=== PATIENT | female | born 1985 | race Two or more races ===

== ENCOUNTER 2016-11-09 07:15 | Emergency (ER) | payer OTHER ==
[2016-11-09 07:41] VITALS: BMI 25.2
--- NOTE | 2016-11-09 08:18 | PDOC ---
History of Present Illness - General History Source: Patient Exam Limitations: No Limitations - History of Present Illness Initial Comments: 11/09/16 09:42 The patient is a 30 year old female with a significant past medical history of asthma and hyperthyroidism who presents to the ED with complaints of generalized abdominal pain for a week. The patient reports crampy generalized abdominal pain radiating to both her left and right quadrants. The patient also reports over 5 episodes of watery stool and vomit productive of green sputum every day. She states she is unable to eat or drink anything secondary to diarrhea and vomiting. The patient also reports slight chest discomfort that she describes as a burning associated with symptoms. The patient was recently seen in the ED 4 days ago for present symptoms and states she felt better for 1 day and then her symptoms worsened again. She states there are 3 children at home who have similar symptoms. Denies recent travel. Denies fevers or chills. Denies shortness of breath or palpitations. Denies hematochezia or hematuria. Denies any other symptoms. Surgical hx: Tubal ligation <Sammie Monroe - Last Filed: 11/09/16 09:42> <Victor Manuel Walton - Last Filed: 11/09/16 14:30> - General Chief Complaint: Pain, Acute Stated Complaint: VOMITING Time Seen by Provider: 11/09/16 08:16 Past History <Sammie Monroe - Last Filed: 11/09/16 09:42> - Past Medical History Asthma: Yes Thyroid Disease: Yes (HYPOTHYROID) - Psycho/Social/Smoking Cessation Hx Suicidal Ideation: No Smoking History: Never smoked <Victor Manuel Walton - Last Filed: 11/09/16 14:30> - Past Medical History Allergies/Adverse Reactions: Allergies Allergy/AdvReac Type Severity Reaction Status Date / Time No Known Allergies Allergy Verified 11/09/16 07:29 Home Medications: Ambulatory Orders Albuterol Sulfate [Proventil HFA Inhaler -] 1 - 2 inh PO QID PRN 11/09/16 Levothyroxine [Synthroid -] 100 mcg PO DAILY 11/09/16 Review of Systems - Review of Systems Able to Perform ROS?: Yes Comments:: 11/09/16 09:42 CONSTITUTIONAL: No reported: Fever, Chills, Diaphoresis, Generalized Weakness, Malaise, Loss of Appetite HEENT: No reported: Rhinorrhea, Nasal Congestion, Throat Pain, Throat Swelling, Difficulty Swallowing, Mouth Swelling, Ear Pain, Eye Pain, Visual Changes CARDIOVASCULAR: No reported: Chest Pain, Syncope, Palpitations, Irregular Heart Rate, Lightheadedness, Peripheral Edema RESPIRATORY: No reported: Cough, Shortness of Breath, SOB with Exertion, Orthopnea, Wheezing , Stridor, Hemoptysis GASTROINTESTINAL: +abdominal pain, nausea, vomiting, diarrhea. No reported: Abdominal Distension, Constipation, Melena, Hematochezia GENITOURINARY: No reported: Dysuria, Frequency, Urgency, Hesitancy, Flank Pain, Genital Pain MUSCULOSKELETAL: No reported: Myalgia, Arthralgia, Joint Swelling, Back pain, Neck Pain SKIN: No reported: Rash, Itching, Pallor HEMEATOLOGIC/IMMUNOLOGIC: No reported: Easy Bleeding, Easy Bruising, Lymphadenopathy, Frequent infections ENDOCRINE: No reported: Unexplained Weight Gain, Unexplained Weight Loss, Heat Intolerance , Cold Intolerance NEUROLOGIC: No reported: Headache, Focal Weakness, Paresthesias, Vertigo, Lightheadedness, Unsteady Gait, Seizure, Mental Status Changes, Incontinence PSYCHIATRIC: No reported: Anxiety, Depression All Other Systems: Reviewed and Negative <Sammie Monroe - Last Filed: 11/09/16 09:42> *Physical Exam - Vital Signs Last Vital Signs Temp Pulse Resp BP Pulse Ox 98.3 F 85 19 102/70 98 11/09/16 07:29 11/09/16 07:29 11/09/16 07:29 11/09/16 07:29 11/09/16 07:29 - Physical Exam Comments: 11/09/16 09:43 GENERAL: The patient is awake, alert, and fully oriented, Nontoxic - in no acute distress. HEAD: Normocephalic, atraumatic. EYES: extraocular movements intact, sclera anicteric, conjunctiva clear. ENT: Normal voice, Moist mucous membranes. NECK: Normal range of motion, supple LUNGS: Breath sounds equal, clear to auscultation bilaterally. No wheezes, no rhonchi, no rales. HEART: Regular rate and rhythm, without murmur, rub or gallop. ABDOMEN:+ active bowel sounds, mild diffuse tenderness. Soft. No guarding, no rebound.No CVA tenderness EXTREMITIES: Normal range of motion, no edema. No clubbing or cyanosis. No cords, erythema, or tenderness. NEUROLOGICAL: No facial assymetry, Normal speech, PSYCH: Normal mood, normal affect. SKIN: Warm, Dry, normal turgor, <FerAndyoko - Last Filed: 11/09/16 09:42> - Vital Signs Last Vital Signs Temp Pulse Resp BP Pulse Ox 98.3 F 85 19 102/70 98 11/09/16 07:29 11/09/16 07:29 11/09/16 07:29 11/09/16 07:29 11/09/16 07:29 <AntonJonathanVictor Manuel - Last Filed: 11/09/16 14:30> ED Treatment Course - LABORATORY CBC & Chemistry Diagram: 11/09/16 09:00 11/09/16 09:00 - ADDITIONAL ORDERS Additional order review: Laboratory Results 11/09/16 09:00 Urine Color Yellow Urine Appearance Clear Urine pH 5.0 Ur Specific [place] 1.028 Urine Protein Negative Urine Glucose (UA) Negative Urine Ketones Negative Urine Blood 1+ H Urine Nitrite Negative Urine Bilirubin Negative Urine Urobilinogen Negative Ur Leukocyte Esterase Trace H Urine RBC 2 Urine WBC 4 Ur Epithelial Cells Rare Urine Mucus Many Urine HCG, Qual Negative 11/09/16 09:00 RBC 4.75 MCV 80.9 MCHC 31.8 L RDW 15.2 MPV 8.7 Neutrophils % 73.2 Lymphocytes % 15.5 Monocytes % 9.8 Eosinophils % 1.1 Basophils % 0.4 - Medications Given in the ED: ED Medications Discontinued Medications Generic Name Dose Route Start Last Admin Trade Name Freq PRN Reason Stop Dose Admin Al Hydroxide/Mg Hydroxide 30 ml 11/09/16 08:39 11/09/16 09:10 Mylanta Suspension - PO 11/09/16 08:40 30 ml ONCE ONE Administration Famotidine/Sodium Chloride 20 50 mls @ 100 mls/hr 11/09/16 08:39 11/09/16 09:11 mg/ Miscellaneous IVPB 11/09/16 09:08 100 mls/hr ONCE ONE Administration Sodium Chloride 1,000 mls @ 1,000 mls/hr 11/09/16 08:39 11/09/16 09:11 Normal Saline - IV 11/09/16 09:38 1,000 mls/hr .Q1H ONE Administration Metoclopramide HCl 10 mg 11/09/16 08:39 11/09/16 09:11 Reglan Injection - IVPUSH 11/09/16 08:40 10 mg ONCE ONE Administration <Sammie Monroe - Last Filed: 11/09/16 09:42> - LABORATORY CBC & Chemistry Diagram: 11/09/16 09:00 11/09/16 09:00 <Victor Manuel Walton - Last Filed: 11/09/16 14:30> Medical Decision Making - Medical Decision Making 11/09/16 08:56 30y F hx of hypothyroidism presents with complaint of n/v/d x 1 week, was here 4 days ago in the ED, was treatred with fluids and felt better for a day but symptmpos recurred - associated with intermittent abdominal pain w/o fever chills, children also with similar sypmtoms pts labs 4 days ago was normal suspect gastroenteritis No focal abdominal tenderness to suggest acute infectious pathology will recheck labs will hydrate and treat with antiemetics. will reassess A portion of this note was documented by scribe services under my direction. I have reviewed the details of the note, within reason, and agree with the documentation with the following case summary and management plan written by me 11/09/16 10:49 The patients labs were reviewed and are unremarkable ua inconsistent with UTI pt feeling improved currently, currently in no abd pain will give pt another L of fluids for hydration anticiapate that if the pt continues to feel well an dis able to tolerate PO intake will d/c with PMD fu 11/09/16 14:28 pt feeling improved abd reassesesd and is soft nontender pt tolerated juice without n/v or abd pain will dc the pt with pmd fu I discussed the physical exam findings, ancillary test results and final diagnoses with the patient. I answered all of the patient's questions. The patient was satisfied with the care received and felt comfortable with the discharge plan and treatment plan. The patient will call their primary care physician within 24 hours to arrange follow-up and will return to the Emergency Department with any new, persistent or worsening symptoms. 11/09/16 14:28 <Victor Manuel Walton - Last Filed: 11/09/16 14:30> *DC/Admit/Observation/Transfer - Attestations Scribe Attestion: 11/09/16 09:43 Documentation prepared by Sammie Monroe, acting as medical services assistant for Victor Manuel Walton MD <Sammie Monroe - Last Filed: 11/09/16 09:42> - Discharge Dispostion Admit: No <Victor Manuel Walton - Last Filed: 11/09/16 14:30> Diagnosis at time of Disposition: Gastroenteritis - Discharge Dispostion Disposition: HOME Condition at time of disposition: Improved - Referrals Referrals: Nettie Leal MD [Primary Care Provider] - - Patient Instructions Printed Discharge Instructions: DI for Viral Gastroenteritis -- Adult, Gastroenteritis Diet Additional Instructions: Return to the emergency department immediately with ANY new, persistent or worsening symptoms including worsening abdominal pain, fevers, inability to tolerate oral intake, chest pain, shortness of breath or any other concerns. Stay well hydrated. You MUST call and follow up with your doctor tomorrow. Your emergency department visit is not complete without a followup with your doctor for reevaluation. Please make sure your doctor reviews the results of your emergency evaluation. Print Language: ICELANDIC
[2016-11-09] MEDS ORDERED: SODIUM CHLORIDE 1,000 ML IV ONE ×2 (08:39→11:00)
[2016-11-09] MEDS ORDERED: FAMOTIDINE 20 MG/50 ML IVPB 20 MG in PREMIX 50 IVPB ONE (08:39)
[2016-11-09] MEDS ORDERED: METOCLOPRAMIDE HCL INJECTION 10 MG/2 ML VIAL IVPUSH ONE (08:39)
[2016-11-09] MEDS ORDERED: MAG HYDROX/AL HYDROX/SIMETH 355 ML ORAL.SUSP PO ONE (08:39)
[2016-11-09] MEDS ORDERED: METOCLOPRAMIDE HCL INJECTION 10 MG/2 ML VIAL ONE (08:55)
[2016-11-09] MEDS ORDERED: FAMOTIDINE 20 MG/50 ML IVPB 50 ML IVPB ONE (08:56)
[2016-11-09] MEDS ORDERED: MAG HYDROX/AL HYDROX/SIMETH 30 ML UNIT-DOSE CUP ONE (08:56)
[2016-11-09 09:25] LABS: URINE APPEARANCE CLEAR; URINE BILIRUBIN NEGATIVE (NEGATIVE); URINE COLOR YELLOW; URINE GLUCOSE (UA) NEGATIVE (NEGATIVE); URINE KETONE NEGATIVE (NEGATIVE); URINE NITRITE NEGATIVE (NEGATIVE); URINE PROTEIN NEGATIVE (NEGATIVE); URINE UROBILINOGEN NEGATIVE E.U./dl (0.2-1.0)
[2016-11-09 09:26] LABS: BASOPHIL 0.4 % (0-2.0); EOSINOPHIL 1.1 % (0-4.5); MCH 25.7 pg (25.7-33.7); MCHC 31.8 g/dl (32.0-36.0); MEAN CELL VOLUME 80.9 fl (80-96); MEAN PLT VOLUME 8.7 fl (7.5-11.1); NEUTROPHILS 73.2 % (42.8-82.8); PLATELET COUNT 139 K/MM3 (134-434); RDW 15.2 % (11.6-15.6); WHITE BLOOD COUNT 5.1 K/mm3 (4.0-10.0)
[2016-11-09 09:28] LABS: URINE BLOOD 1+ (NEGATIVE); URINE LEUK ESTERASE TRACE (NEGATIVE)
[2016-11-09 09:29] LABS: URINE MUCUS MANY; URINE RBC 2 /hpf (0-3); URINE WBC 4 /hpf (3-5)
[2016-11-09 09:55] LABS: ALBUMIN 3.7 g/dl (3.4-5.0); ANION GAP 8 (8-16); CALCIUM 8.4 mg/dL (8.5-10.1); CO2 26 mmol/L (21-32); GLUCOSE,RANDOM 89 mg/dL (74-106)
[2016-11-09 10:00] LABS: ALK PHOS 61 U/L (45-117); BILIRUBIN,TOTAL 0.3 mg/dL (0.2-1.0); COCKROFT - GAULT 116.875; CREATININE 0.8 mg/dL (0.55-1.02); SGOT/AST 19 U/L (15-37); SGPT/ALT 22 U/L (12-78); TOT PROT 7.9 g/dl (6.4-8.2)
[2016-11-09 14:56] VITALS: BP 110/74; PULSE 84; TEMP 98.4
== END 2016-11-09 14:50 | disposition home or self-care (01) ==
LOC: JER 07:15
PROC: 3E0337Z Introduction of Electrolytic and Water Balance Substance into Peripheral Vein, Percutaneous Approach (ICD-10-PCS; principal; 2016-11-09)
PROC: 3E033GC Introduction of Other Therapeutic Substance into Peripheral Vein, Percutaneous Approach (ICD-10-PCS; 2016-11-09)
DX: E03.9 Hypothyroidism, unspecified (principal)
CPT/HCPCS: 36415; 80053; 81003; 81015; 84703; 85025; 96361; 96365; 99282-25

== ENCOUNTER 2016-11-14 21:33 | Emergency (ER) | payer OTHER ==
[2016-11-14] MEDS ORDERED: IPRATROPIUM BR 0.02% 0.5 MG/2.5 ML VIAL.NEB. NEB ONE ×2 (21:38→22:05)
[2016-11-14] MEDS ORDERED: ALBUTEROL SO4 0.083% IH SOL 2.5 MG/3 ML VIAL.NEB. NEB ONE ×2 (21:38→22:05)
[2016-11-14] MEDS ORDERED: predniSONE 20 MG TABLET (UD) PO ONE (21:38)
[2016-11-14] MEDS ORDERED: ALBUTEROL SO4 2.5/IPRATROPIUM 0.5 INH SOL 3 ML VIAL.NEB. NEB ONE (21:45)
--- NOTE | 2016-11-14 21:50 | PDOC ---
History of Present Illness - General History Source: Patient, EMS, Old Records Exam Limitations: No Limitations - History of Present Illness Initial Comments: 11/14/16 21:53 The patient is a 30 year old female brought via EMS, with a significant past medical history of asthma and hypothyroidism, who presents to the emergency department with asthma exacerbation onset 90 minutes ago. She reports that she was at home when the exacerbation began and called EMS. As per EMS, on route they administered nebulizer to the patient, which helped to relief her wheezing. On presentation the patient has a dry cough. The patient notes that she has had asthma exacerbations in the past, twice causing her to get hospitalized. She notes that she attributes her asthma exacerbation to the changing of the weather. The patient denies chest pain, headache and dizziness. Denies fever, chills, nausea, vomit, diarrhea and constipation. Denies dysuria, frequency, urgency and hematuria. Allergies: None Past surgical history: None reported Social history: No alcohol, tobacco or drug use reported <Jay Chavez - Last Filed: 11/14/16 21:53> - General History Source: Patient Exam Limitations: No Limitations <Devon Sam - Last Filed: 11/14/16 22:49> - General Stated Complaint: ASTHMA Time Seen by Provider: 11/14/16 21:38 Past History <Jay Chavez - Last Filed: 11/14/16 21:53> - Past Medical History Asthma: Yes Thyroid Disease: Yes (HYPOTHYROID) - Psycho/Social/Smoking Cessation Hx Suicidal Ideation: No Smoking History: Never smoked <Devon Sam - Last Filed: 11/14/16 22:49> - Past Medical History Allergies/Adverse Reactions: Allergies Allergy/AdvReac Type Severity Reaction Status Date / Time No Known Allergies Allergy Verified 11/09/16 07:29 Home Medications: Ambulatory Orders Albuterol Sulfate [Proventil HFA Inhaler -] 1 - 2 inh PO QID PRN 11/09/16 Levothyroxine [Synthroid -] 100 mcg PO DAILY 11/09/16 Albuterol Sulfate Inhaler - [Ventolin HFA Inhaler -] 1 - 2 inh PO Q4H PRN #1 inhaler 11/14/16 Prednisone [Deltasone -] 60 mg PO DAILY #12 tablet 11/14/16 Review of Systems - Review of Systems Able to Perform ROS?: Yes Comments:: 11/14/16 21:53 GENERAL/CONSTITUTIONAL: No fever or chills. No weakness. HEAD, EYES, EARS, NOSE AND THROAT: No change in vision. No ear pain or discharge. No sore throat. CARDIOVASCULAR: +Shortness of breath. No chest pain RESPIRATORY: No cough, wheezing, or hemoptysis. GASTROINTESTINAL: No nausea, vomiting, diarrhea or constipation. GENITOURINARY: No dysuria, frequency, or change in urination. MUSCULOSKELETAL: No joint or muscle swelling or pain. No neck or back pain. SKIN: No rash NEUROLOGIC: No headache, vertigo, loss of consciousness, or change in strength/ sensation. ENDOCRINE: No increased thirst. No abnormal weight change HEMATOLOGIC/LYMPHATIC: No anemia, easy bleeding, or history of blood clots. ALLERGIC/IMMUNOLOGIC: No hives or skin allergy. <Jay Chavez - Last Filed: 11/14/16 21:53> *Physical Exam - Physical Exam Comments: 11/14/16 21:54 GENERAL: Awake, alert, and fully oriented, in no acute distress HEAD: No signs of trauma, normocephalic, atraumatic EYES: PERRLA, EOMI, sclera anicteric, conjunctiva clear ENT: Auricles normal inspection, hearing grossly normal, nares patent, oropharynx clear without exudates. Moist mucosa NECK: Normal ROM, supple, no lymphadenopathy, JVD, or masses LUNGS: No distress, speaks full sentences, clear to auscultation bilaterally HEART: Regular rate and rhythm, normal S1 and S2, no murmurs, rubs or gallops, peripheral pulses normal and equal bilaterally. ABDOMEN: Soft, nontender, normoactive bowel sounds. No guarding, no rebound. No masses EXTREMITIES: Normal inspection, Normal range of motion, no edema. No clubbing or cyanosis. NEUROLOGICAL: Cranial nerves II through XII grossly intact. Normal speech, normal gait, no focal sensorimotor deficits SKIN: Warm, Dry, normal turgor, no rashes or lesions noted. <Jay Chavez - Last Filed: 11/14/16 21:53> Medical Decision Making - Medical Decision Making 11/14/16 21:49 A portion of this note was documented by scribe services under my direction. I have reviewed the details of the note, within reason, and agree with the documentation with the following case summary and management plan written by me. Patient treated in the ED. Nursing notes are reviewed and incorporated into the medical decision-making. Vital signs reviewed. Peripheral IV access obtained by the nurse, laboratory studies are drawn and sent, reviewed and interpreted by myself. 30-year-old female with past medical history of asthma, with prior hospitalizations presents with asthma exacerbation. Patient reports that she was in her usual state health when approximately one half hours prior to arrival , she started wheezing and chest tightness. She called 911 and medics noticed that she had tight breath sounds. She was given a Combivent and brought to the ED. She reports no significant better and talking. She reports that the weather change may have exacerbated her symptoms. Denies fevers, chills, cough. Denies sick contacts or recent travels. Patient's lungs are significantly cleared and without wheezing. We'll give another dose of nebs and steroids and observed. This patient's symptoms are improved, she can be discharged with PMD follow-up. 11/14/16 22:43 Pt reports feeling better. I discussed the physical exam findings, ancillary test results and final diagnoses with the patient. I answered all of the patient's questions. The patient was satisfied with the care received and felt comfortable with the discharge plan and treatment plan. The patient will call their primary care physician within 24 hours to arrange follow-up and will return to the Emergency Department with any new, persistant or worsening symptoms. <Devon Sam - Last Filed: 11/14/16 22:49> *DC/Admit/Observation/Transfer - Attestations Scribe Attestion: 11/14/16 21:54 Documentation prepared by Jay Chavez, acting as medical accountant for Devon Sam MD <Jay Chavez - Last Filed: 11/14/16 21:53> - Discharge Dispostion Admit: No <Devon Sam - Last Filed: 11/14/16 22:49> Diagnosis at time of Disposition: Asthma exacerbation - Discharge Dispostion Disposition: HOME Condition at time of disposition: Improved - Prescriptions Prescriptions: Prednisone [Deltasone -] 60 mg PO DAILY #12 tablet Albuterol Sulfate Inhaler - [Ventolin HFA Inhaler -] 1 - 2 inh PO Q4H PRN #1 inhaler PRN Reason: Wheezing - Referrals Referrals: Nettie Leal MD [Primary Care Provider] - - Patient Instructions Printed Discharge Instructions: DI for Asthma -- Adult Additional Instructions: Take 2 puffs of albuterol every 4 hours as needed for wheezing. Please take the prednisone daily for the next 4 days. Please follow up with your doctor.
[2016-11-14] MEDS ORDERED: predniSONE 20 MG TABLET (UD) ONE (22:05)
[2016-11-14 23:09] VITALS: BP 121/80; PULSE 72; TEMP 98.6; BMI 27.9
== END 2016-11-14 23:32 | disposition home or self-care (01) ==
LOC: JER 21:33
PROC: 3E0F7GC Introduction of Other Therapeutic Substance into Respiratory Tract, Via Natural or Artificial Opening (ICD-10-PCS; principal; 2016-11-14)
DX: J45.901 Unspecified asthma with (acute) exacerbation (principal); E03.9 Hypothyroidism, unspecified
CPT/HCPCS: 99282-25

== ENCOUNTER 2017-03-08 09:13 | Emergency (ER) | payer OTHER ==
[2017-03-08 09:21] VITALS: TEMP 98.1; BMI 28.1
--- NOTE | 2017-03-08 10:02 | PDOC ---
History of Present Illness - General History Source: Patient, Family Exam Limitations: No Limitations - History of Present Illness Initial Comments: 03/08/17 10:22 The patient is a 31 year old female, with significant past medical history of hypothyroidism, asthma, who presents today complaining of LLQ pain and nausea x2 days. She reports that the pain progressively worsened since yesterday . She reports nausea, but denies vomiting. She notes that her LMP was in July, which is not unusual for her. 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 Denies vomiting, diarrhea, constipation. Denies fever, chills. Denies urinary frequency, dysuria, hematuria. Denies vaginal discharge/ foul odor. Allergies:none reported Surgical Hx: tubal ligation (7 years ago) Social Hx: No tobacco use. No alcohol use. PCP- Dr. Nettie Leal <Rosa Martínez - Last Filed: 03/08/17 13:17> <Jaycee Epperson - Last Filed: 03/08/17 17:40> - General Chief Complaint: Pain, Acute Stated Complaint: ABD PAIN Time Seen by Provider: 03/08/17 09:33 Past History <Rosa Martínez - Last Filed: 03/08/17 13:17> - Past Medical History Asthma: Yes Thyroid Disease: Yes (HYPOTHYROID) - Immunization History Immunization Up to Date: Yes - Psycho/Social/Smoking Cessation Hx Suicidal Ideation: No Smoking History: Never smoked Have you smoked in the past 12 months: No Information on smoking cessation initiated: No Hx Alcohol Use: No Drug/Substance Use Hx: No <Jaycee Epperson - Last Filed: 03/08/17 17:40> - Past Medical History Allergies/Adverse Reactions: Allergies Allergy/AdvReac Type Severity Reaction Status Date / Time No Known Allergies Allergy Verified 03/08/17 09:18 Home Medications: Ambulatory Orders Levothyroxine [Synthroid -] 100 mcg PO DAILY 11/09/16 Albuterol Sulfate Inhaler - [Ventolin HFA Inhaler -] 1 - 2 inh PO Q4H PRN #1 inhaler 11/14/16 Ibuprofen [Motrin -] 600 mg PO TID PRN #21 tablet 03/08/17 Oxycodone HCl/Acetaminophen [Percocet 5-325 mg Tablet] 1 tab PO Q6H PRN #12 tablet MDD 4 tabs 03/08/17 Review of Systems - Review of Systems Able to Perform ROS?: Yes Comments:: 03/08/17 10:22 GENERAL/CONSTITUTIONAL: No fever or chills. No weakness. HEAD, EYES, EARS, NOSE AND THROAT: No change in vision. No ear pain or discharge. No sore throat. CARDIOVASCULAR: No chest pain or shortness of breath. RESPIRATORY: No cough, wheezing, or hemoptysis. GASTROINTESTINAL: +LLQ pain and nausea x2days. No vomiting, diarrhea or constipation. GENITOURINARY: No dysuria, frequency, or change in urination. MUSCULOSKELETAL: No joint or muscle swelling or pain. No neck or back pain. SKIN: No rash NEUROLOGIC: No headache, vertigo, loss of consciousness, or change in strength/ sensation. ENDOCRINE: No increased thirst. No abnormal weight change. HEMATOLOGIC/LYMPHATIC: No anemia, easy bleeding, or history of blood clots. ALLERGIC/IMMUNOLOGIC: No hives or skin allergy. <Rosa Martínez - Last Filed: 03/08/17 13:17> *Physical Exam - Vital Signs Last Vital Signs Temp Pulse Resp BP Pulse Ox 98.1 F 81 20 110/77 100 03/08/17 09:18 03/08/17 09:18 03/08/17 09:18 03/08/17 09:18 03/08/17 09:18 <Rosa Martínez - Last Filed: 03/08/17 13:17> - Vital Signs Last Vital Signs Temp Pulse Resp BP Pulse Ox 98.1 F 81 20 110/77 100 03/08/17 09:18 03/08/17 09:18 03/08/17 09:18 03/08/17 09:18 03/08/17 09:18 - Physical Exam Comments: GENERAL: Awake, alert, and fully oriented, in no acute distress. Appears uncomfortable. HEAD: No signs of trauma EYES: PERRLA, EOMI, sclera anicteric, conjunctiva clear ENT: Auricles normal inspection, hearing grossly normal, nares patent, oropharynx clear without exudates. Moist mucosa NECK: Normal ROM, supple, no lymphadenopathy, JVD, or masses LUNGS: Breath sounds equal, clear to auscultation bilaterally. No wheezes, and no crackles HEART: Regular rate and rhythm, normal S1 and S2, no murmurs, rubs or gallops ABDOMEN: Soft, +Tenderness to LLQ with guarding, normoactive bowel sounds. No rebound. No masses EXTREMITIES: Normal range of motion, no edema. No clubbing or cyanosis. No cords, erythema, or tenderness NEUROLOGICAL: Cranial nerves II through XII grossly intact. Normal speech, normal gait. SKIN: Warm, Dry, normal turgor, no rashes or lesions noted. : No external lesions. +Physiologic discharge. +R adnexal tenderness. <Jaycee Epperson - Last Filed: 03/08/17 17:40> ED Treatment Course - LABORATORY CBC & Chemistry Diagram: 03/08/17 10:20 03/08/17 10:20 - ADDITIONAL ORDERS Additional order review: Laboratory Results 03/08/17 09:36 Urine Color L[place] Urine Appearance Clear Urine pH 6.0 Urine Protein Negative Urine Glucose (UA) Negative Urine Ketones Negative Urine Blood 1+ H Urine Nitrite Negative Urine Bilirubin Negative Urine Urobilinogen Negative Ur Leukocyte Esterase 1+ H Urine RBC 2 Urine WBC 3 Ur Epithelial Cells Rare Urine Mucus Rare Urine HCG, Qual Negative - RADIOLOGY Radiograph Interpretation: 03/08/17 13:17 EXAM#: TYPE/EXAM: RESULT: [id number] US/TRANSVAGINAL ULTRASOUND US [id number] US/PELVIC / BLADDER US HISTORY PROVIDED: Pelvic pain. Real time examination of the pelvis utilizing both the transabdominal and transvaginal probes demonstrates the following: The uterus is normal in size measuring 9.2 x 6.0 x 4.6 cm. No uterine masses are seen. A prominent endometrium of 9 mm thickness was demonstrated. Is identified. Nabothian cysts are noted within the cervix. The ovaries are normal in size and texture with arterial flow documented to both ovaries. There is a complex cyst within the left ovary measuring 3.5 x 3.4 x 3.1 cm. This cyst most likely is hemorrhagic in nature. There is no evidence of adnexal masses. Trace free fluid is identified within the cul-de-sac. IMPRESSION: Left ovarian cyst and free pelvic fluid, no evidence of ovarian torsion or acute pathology. Reported By: Jr Sutton MD 03/08/17 0976 <Rosa Martínez - Last Filed: 03/08/17 13:17> - LABORATORY CBC & Chemistry Diagram: 03/08/17 10:20 03/08/17 10:20 - ADDITIONAL ORDERS Additional order review: Laboratory Results 03/08/17 09:36 Urine HCG, Qual Negative <Jaycee Epperson - Last Filed: 03/08/17 17:40> Medical Decision Making - Medical Decision Making 03/08/17 14:05 Pt tolerated PO. She reports the pain is much better. Stable for DC home. <Jaycee Epperson - Last Filed: 03/08/17 17:40> *DC/Admit/Observation/Transfer - Attestations Scribe Attestion: 03/08/17 10:23 Documentation prepared by COLLETTE Beltran, acting as anesthesiology medical doctor for Jaycee Epperson MD. <Rosa Martínez - Last Filed: 03/08/17 13:17> - Discharge Dispostion Admit: No <Jaycee Epperson - Last Filed: 03/08/17 17:40> Diagnosis at time of Disposition: Ovarian cyst - Discharge Dispostion Disposition: HOME Condition at time of disposition: Improved - Prescriptions Prescriptions: Ibuprofen [Motrin -] 600 mg PO TID PRN #21 tablet PRN Reason: Pain Oxycodone HCl/Acetaminophen [Percocet 5-325 mg Tablet] 1 tab PO Q6H PRN #12 tablet MDD 4 tabs PRN Reason: Severe Pain - Referrals Referrals: Nettie Leal MD [Primary Care Provider] - - Patient Instructions Printed Discharge Instructions: DI for Ovarian Cyst Print Language: URUGUAYAN - Post Discharge Activity Work/School Note: Back to Work
[2017-03-08 10:07] LABS: URINE APPEARANCE CLEAR; URINE BILIRUBIN NEGATIVE (NEGATIVE); URINE BLOOD 1+ (NEGATIVE); URINE COLOR LTYELLOW; URINE GLUCOSE (UA) NEGATIVE (NEGATIVE); URINE KETONE NEGATIVE (NEGATIVE); URINE NITRITE NEGATIVE (NEGATIVE); URINE PROTEIN NEGATIVE (NEGATIVE); URINE UROBILINOGEN NEGATIVE mg/dL (0.2-1.0)
[2017-03-08] MEDS ORDERED: ONDANSETRON 4 MG/2 ML VIAL IVPUSH ONE (10:10)
[2017-03-08] MEDS ORDERED: morphine CARPU-JECT 4 MG/1 ML DISP.SYRIN IVPUSH ONE ×2 (10:10→11:50)
[2017-03-08] MEDS ORDERED: SODIUM CHLORIDE 1,000 ML IV STA (10:10)
[2017-03-08 10:16] LABS: URINE LEUK ESTERASE 1+ (NEGATIVE)
[2017-03-08 10:20] LABS: URINE MUCUS RARE; URINE RBC 2 /hpf (0-3); URINE WBC 3 /hpf (3-5)
[2017-03-08] MEDS ORDERED: ONDANSETRON 4 MG/2 ML VIAL ONE (10:24)
[2017-03-08] MEDS ORDERED: morphine CARPU-JECT 4 MG/1 ML DISP.SYRIN ONE ×2 (10:24→11:57)
[2017-03-08 11:18] LABS: BASOPHIL 0.6 % (0-2.0); EOSINOPHIL 3.3 % (0-4.5); MCH 26.1 pg (25.7-33.7); MCHC 32.3 g/dl (32.0-36.0); MEAN CELL VOLUME 80.7 fl (80-96); MEAN PLT VOLUME 9.3 fl (7.5-11.1); NEUTROPHILS 62.1 % (42.8-82.8); PLATELET COUNT 166 K/MM3 (134-434); RDW 15.2 % (11.6-15.6); WHITE BLOOD COUNT 5.8 K/mm3 (4.0-10.0)
[2017-03-08 12:12] LABS: ALBUMIN 3.4 g/dl (3.4-5.0); ANION GAP 6 (8-16); BILIRUBIN,TOTAL 0.4 mg/dL (0.2-1.0); CALCIUM 8.7 mg/dL (8.5-10.1); CO2 27 mmol/L (21-32); CREATININE 0.8 mg/dL (0.55-1.02); GLUCOSE,RANDOM 85 mg/dL (74-106); SGOT/AST 14 U/L (15-37); SGPT/ALT 18 U/L (12-78)
[2017-03-08 12:13] LABS: ALK PHOS 58 U/L (45-117); TOT PROT 6.8 g/dl (6.4-8.2)
[2017-03-08] MEDS ORDERED: KETOROLAC TROMETHAMINE 30 MG/1 ML VIAL IVPUSH ONE (13:31)
[2017-03-08] MEDS ORDERED: KETOROLAC TROMETHAMINE 30 MG/1 ML VIAL ONE (13:50)
[2017-03-08 13:56] VITALS: BP 107/65; PULSE 65
== END 2017-03-08 14:15 | disposition home or self-care (01) ==
LOC: JER 09:13
PROC: 3E0333Z Introduction of Anti-inflammatory into Peripheral Vein, Percutaneous Approach (ICD-10-PCS; principal; 2017-03-08)
PROC: 3E033NZ Introduction of Analgesics, Hypnotics, Sedatives into Peripheral Vein, Percutaneous Approach (ICD-10-PCS; 2017-03-08)
PROC: 3E033GC Introduction of Other Therapeutic Substance into Peripheral Vein, Percutaneous Approach (ICD-10-PCS; 2017-03-08)
PROC: 3E0337Z Introduction of Electrolytic and Water Balance Substance into Peripheral Vein, Percutaneous Approach (ICD-10-PCS; 2017-03-08)
DX: N83.209 Unspecified ovarian cyst, unspecified side (principal)
CPT/HCPCS: 36415; 76830-TC; 76856-TC; 80053; 81003; 81015; 83690; 84703; 85025; 96361; 96374; 96375; 96376; 99283-25

== ENCOUNTER 2017-04-02 20:15 | Emergency (ER) | payer OTHER ==
[2017-04-02 20:25] VITALS: PULSE 72; BMI 21.9
[2017-04-02 20:44] LABS: BASOPHIL 0.7 % (0-2.0); EOSINOPHIL 3.3 % (0-4.5); MCH 26.4 pg (25.7-33.7); MCHC 32.6 g/dl (32.0-36.0); MEAN PLT VOLUME 8.6 fl (7.5-11.1); NEUTROPHILS 54.4 % (42.8-82.8); PLATELET COUNT 184 K/MM3 (134-434); RDW 15.4 % (11.6-15.6); WHITE BLOOD COUNT 7.4 K/mm3 (4.0-10.0)
[2017-04-02 21:11] LABS: ALBUMIN 3.1 g/dl (3.4-5.0); ANION GAP 6 (8-16); BILIRUBIN,TOTAL 0.2 mg/dL (0.2-1.0); CALCIUM 8.5 mg/dL (8.5-10.1); CO2 27 mmol/L (21-32); GLUCOSE,RANDOM 89 mg/dL (74-106); SGOT/AST 13 U/L (15-37); SGPT/ALT 19 U/L (12-78); TOT PROT 6.6 g/dl (6.4-8.2)
[2017-04-02 21:14] LABS: ALK PHOS 65 U/L (45-117); CPK 99 IU/L (26-192); TROPONIN I < 0.02 ng/ml (0.00-0.05)
[2017-04-02 22:08] LABS: URINE APPEARANCE SLCLOUDY; URINE BILIRUBIN NEGATIVE (NEGATIVE); URINE BLOOD NEGATIVE (NEGATIVE); URINE COLOR LTYELLOW; URINE GLUCOSE (UA) NEGATIVE (NEGATIVE); URINE KETONE NEGATIVE (NEGATIVE); URINE LEUK ESTERASE TRACE (NEGATIVE); URINE NITRITE NEGATIVE (NEGATIVE); URINE PROTEIN NEGATIVE (NEGATIVE)
[2017-04-02 22:31] LABS: URINE MUCUS RARE; URINE RBC 1 /hpf (0-3); URINE WBC 2 /hpf (3-5)
--- NOTE | 2017-04-02 22:36 | PDOC ---
History of Present Illness - General History Source: Patient, Old Records Exam Limitations: No Limitations <Christina Cook - Last Filed: 04/02/17 22:36> <Heather Marquez - Last Filed: 04/02/17 23:52> - General Chief Complaint: Chest Pain Stated Complaint: CHEST PAIN Time Seen by Provider: 04/02/17 20:25 - History of Present Illness Initial Comments: 04/02/17 22:36 The patient is a 31 year old female, with a significant past medical history of asthma and hypothyroidism, who presents to the emergency department with radiating midsternal chest pain just prior to presentation. The patient reports that the chest pain radiates to her left arm. The patient reports that she was in her usual state of health earlier today and reports that her symptoms began shortly after she ate dinner tonight. The patient reports that the chest pain does not feel like her prior asthma exacerbations. The patient denies fever or chills. The patient denies diaphoresis or shortness of breath. The patient denies fever or chills. The patient denies diaphoresis, palpitations or shortness of breath. Currently in the ED the patient is reporting left leg pain , specifically the posterior leg extending down to the popliteal region. She reports that her leg feels heavy and hot but she denies any numbness/tingling/ back pain. The patients primary language is Sinhala, a family member is at the bedside translating. Allergies: None reported. Past Surgical History: Tubal Ligation Social History: Non-smoker. Denies alcohol or drug use. PCP: Dr. Nettie Leal (Christina Cook) Past History <Christina Cook - Last Filed: 04/02/17 22:36> - Past Medical History Asthma: Yes Thyroid Disease: Yes (HYPOTHYROID) - Immunization History Immunization Up to Date: Yes - Psycho/Social/Smoking Cessation Hx Suicidal Ideation: No Smoking History: Unknown if ever smoked Have you smoked in the past 12 months: No Information on smoking cessation initiated: No Hx Alcohol Use: No Drug/Substance Use Hx: No <Heather Marquez - Last Filed: 04/02/17 23:52> - Past Medical History Allergies/Adverse Reactions: Allergies Allergy/AdvReac Type Severity Reaction Status Date / Time No Known Allergies Allergy Verified 04/02/17 20:21 Home Medications: Ambulatory Orders Levothyroxine [Synthroid -] 100 mcg PO DAILY 11/09/16 Albuterol Sulfate Inhaler - [Ventolin HFA Inhaler -] 1 - 2 inh PO Q4H PRN #1 inhaler 11/14/16 Review of Systems - Review of Systems Able to Perform ROS?: Yes <Christina Cook - Last Filed: 04/02/17 22:36> <Heather Marquez - Last Filed: 04/02/17 23:52> - Review of Systems Comments:: 04/02/17 22:36 CONSTITUTIONAL: Absent: fever, no chills, no fatigue EYES: Absent: visual changes ENT: Absent: ear pain, no sore throat CARDIOVASCULAR: Present: +Chest pain Absent: no palpitations RESPIRATORY: Absent: cough, no SOB GI: Absent: abdominal pain, no nausea, no vomiting, no constipation, no diarrhea GENITOURINARY: Absent: dysuria, no frequency, no hematuria MUSCULOSKELETAL: Present: +Left leg pain Absent: back pain, no arthralgia SKIN: Absent: rash NEURO: Absent: headache (Christina Cook) *Physical Exam <Christina Cook - Last Filed: 04/02/17 22:36> <Heather Marquez - Last Filed: 04/02/17 23:52> - Vital Signs Last Vital Signs Temp Pulse Resp BP Pulse Ox 72 16 108/60 100 04/02/17 20:21 04/02/17 23:32 04/02/17 23:32 04/02/17 23:32 - Physical Exam Comments: 04/02/17 22:37 GENERAL: Well-appearing, well-nourished. No apparent distress. HEENT: Normocephalic, atraumatic. PERRL, EOM intact. CARDIOVASCULAR: Normal S1, S2. Regular rate and rhythm. PULMONARY: Clear to auscultation bilaterally. ABDOMEN: Soft, non-distended, non-tender. EXTREMITIES: Normal ROM in all four extremities. No gross deformities. SKIN: Warm, dry. No rash. NEUROLOGICAL: No focal neurological deficits. (Christina Cook) ED Treatment Course - LABORATORY CBC & Chemistry Diagram: 04/02/17 20:35 04/02/17 20:35 <CrookstonHolliChristina - Last Filed: 04/02/17 22:36> - LABORATORY CBC & Chemistry Diagram: 04/02/17 20:35 04/02/17 20:35 <Heather Marquez - Last Filed: 04/02/17 23:52> - ADDITIONAL ORDERS Additional order review: Laboratory Results 04/02/17 04/02/17 04/02/17 22:00 20:35 20:35 WBC RBC Hgb Hct MCV MCH MCHC RDW Plt Count MPV Neutrophils % Lymphocytes % Monocytes % Eosinophils % Basophils % Sodium 140 Potassium 3.8 Chloride 107 Carbon Dioxide 27 Anion Gap 6 L BUN 11 D Creatinine 1.0 D Creat Clearance w eGFR > 60 Random Glucose 89 Calcium 8.5 Total Bilirubin 0.2 D AST 13 L ALT 19 Alkaline Phosphatase 65 Creatine Kinase 99 Troponin I < 0.02 Total Protein 6.6 Albumin 3.1 L Lipase 139 Serum , Qual Negative Urine Color Ltyellow Urine Appearance Slcloudy Urine pH 6.0 Urine Protein Negative Urine Glucose (UA) Negative Urine Ketones Negative Urine Blood Negative Urine Nitrite Negative Urine Bilirubin Negative Urine Urobilinogen 2.0 H Ur Leukocyte Esterase Trace Urine RBC 1 Urine WBC 2 Ur Epithelial Cells Rare Urine Mucus Rare 04/02/17 20:35 WBC 7.4 RBC 4.06 Hgb 10.7 Hct 32.9 MCV 81.0 MCH 26.4 MCHC 32.6 RDW 15.4 Plt Count 184 MPV 8.6 Neutrophils % 54.4 Lymphocytes % 33.8 D Monocytes % 7.8 Eosinophils % 3.3 Basophils % 0.7 Sodium Potassium Chloride Carbon Dioxide Anion Gap BUN Creatinine Creat Clearance w eGFR Random Glucose Calcium Total Bilirubin AST ALT Alkaline Phosphatase Creatine Kinase Troponin I Total Protein Albumin Lipase Serum , Qual Urine Color Urine Appearance Urine pH Urine Protein Urine Glucose (UA) Urine Ketones Urine Blood Urine Nitrite Urine Bilirubin Urine Urobilinogen Ur Leukocyte Esterase Urine RBC Urine WBC Ur Epithelial Cells Urine Mucus 04/02/17 20:35 RBC 4.06 MCV 81.0 MCHC 32.6 RDW 15.4 MPV 8.6 Neutrophils % 54.4 Lymphocytes % 33.8 D Monocytes % 7.8 Eosinophils % 3.3 Basophils % 0.7 - Medications Given in the ED: ED Medications Discontinued Medications Generic Name Dose Route Start Last Admin Trade Name Jaren PRN Reason Stop Dose Admin Al Hydroxide/Mg Hydroxide 30 ml 04/02/17 23:18 04/02/17 23:19 Mylanta Suspension - PO 04/02/17 23:19 30 ml NOW ONE Administration Aspirin 162 mg 04/02/17 23:18 04/02/17 23:18 Asa - PO 04/02/17 23:19 162 mg NOW ONE Administration Ketorolac Tromethamine 60 mg 04/02/17 23:04 04/02/17 23:30 Toradol Injection - IM 04/02/17 23:05 Not Given ONCE ONE Oxycodone/Acetaminophen 1 combo 04/02/17 23:05 04/02/17 23:31 Percocet 5/325 - PO 04/02/17 23:06 Not Given ONCE ONE Medical Decision Making <Christina Cook - Last Filed: 04/02/17 22:36> <Heather Marquez - Last Filed: 04/02/17 23:52> - Medical Decision Making 04/02/17 23:47 31-year-old female who was home this evening he had developed sudden chest pain. According to her partner. She had severe chest pain. EKG was normal sinus rhythm. Troponin was negative. While she was here she developed left thigh pain that was burning in nature, but then resolved. Labs were reviewed and they're unremarkable. Patient is now requesting that she goes home and she' ll be discharged home. Impression atypical chest pain (Heather Marquez) *DC/Admit/Observation/Transfer <Christina Cook - Last Filed: 04/02/17 22:36> <Heather Marquez - Last Filed: 04/02/17 23:52> Diagnosis at time of Disposition: Atypical chest pain - Discharge Dispostion Disposition: ELOPED Condition at time of disposition: Stable - Referrals Referrals: Nettie Leal MD [Primary Care Provider] - - Patient Instructions Printed Discharge Instructions: DI for Chest Pain Additional Instructions: please followup with your regular physician return for any worsening symptoms - Attestations Scribe Attestion: 04/02/17 22:37 Documentation prepared by Christina Cook, acting as medical pathologist for Heather Marquez MD. (Christina Cook)
[2017-04-02] MEDS ORDERED: KETOROLAC TROMETHAMINE 60 MG/2 ML VIAL IM ONE (23:04)
[2017-04-02] MEDS ORDERED: ASPIRIN 81 MG CHEWABLE TABLETS PO ONE (23:18)
[2017-04-02] MEDS ORDERED: MAG HYDROX/AL HYDROX/SIMETH 355 ML ORAL.SUSP PO ONE (23:18)
[2017-04-02] MEDS ORDERED: MAG HYDROX/AL HYDROX/SIMETH 30 ML UNIT-DOSE CUP ONE (23:20)
[2017-04-02] MEDS ORDERED: ASPIRIN 81 MG CHEWABLE TABLETS ONE (23:20)
[2017-04-02 23:32] VITALS: BP 108/60
--- NOTE | 2017-04-03 11:53 | EKG ---
Test Reason : Blood Pressure : / mmHG Vent. Rate : 069 BPM Atrial Rate : 069 BPM P-R Int : 150 ms QRS Dur : 092 ms QT Int : 394 ms P-R-T Axes : 034 005 018 degrees QTc Int : 422 ms NORMAL SINUS RHYTHM NORMAL ECG NO PREVIOUS ECGS AVAILABLE Confirmed by SAÚL CORBETT, WAYNE ([id number]) on 04/03/2017 11:52:31 AM Referred By: Confirmed By:WAYNE HAYS MD
== END 2017-04-02 23:54 | disposition home or self-care (01) ==
LOC: JER 20:15
PROC: 3E0233Z Introduction of Anti-inflammatory into Muscle, Percutaneous Approach (ICD-10-PCS; principal; 2017-04-02)
DX: R07.89 Other chest pain (principal); E03.9 Hypothyroidism, unspecified; J45.909 Unspecified asthma, uncomplicated
CPT/HCPCS: 36415; 80053; 81003; 81015; 83690; 84484; 84703; 85025; 93005; 93010; 96372; 99282-25

== ENCOUNTER 2017-05-22 00:30 | Inpatient (IN) | payer OTHER ==
[2017-05-22 00:43] VITALS: BMI 30.4
--- NOTE | 2017-05-22 01:20 | PDOC ---
History of Present Illness - General History Source: Patient Exam Limitations: No Limitations - History of Present Illness Initial Comments: 05/22/17 01:37 The patient is a 31 year old female, with a significant past medical history of Hypothyroidism who presents to the emergency department s/p witnessed seizure. As per , patient was feeling cold and went to bed. However, seconds later he felt her shaking against him and witnessed seizure like activity. Patient was found to be stiff, shaking with eyes rolling back. Patient denies any tongue biting, headache, weakness. Patient denied any head trauma or any injuries. Patient denies seizure hx. She denies chest pain or dizziness. She denies fever , chills, abdominal pain, nausea, vomit, diarrhea or constipation. She denies dysuria, frequency, urgency or hematuria. Patient denies sick contacts or recent travel. <Heike Latham - Last Filed: 05/22/17 01:37> - General History Source: Patient, Spouse <Jay Gilbert - Last Filed: 05/22/17 05:14> - General Chief Complaint: Seizure Stated Complaint: SEIZURE Time Seen by Provider: 05/22/17 01:16 Past History <Heike Latham - Last Filed: 05/22/17 01:37> - Past Medical History Asthma: Yes Thyroid Disease: Yes (HYPOTHYROID) - Immunization History Immunization Up to Date: Yes - Suicide/Smoking/Psychosocial Hx Smoking History: Never smoked Have you smoked in the past 12 months: No Information on smoking cessation initiated: No Hx Alcohol Use: No Drug/Substance Use Hx: No <Jay Gilbert - Last Filed: 05/22/17 05:14> - Past Medical History Allergies/Adverse Reactions: Allergies Allergy/AdvReac Type Severity Reaction Status Date / Time naproxen Allergy Severe Hives Verified 05/22/17 02:45 nortriptyline Allergy Severe Hives Verified 05/22/17 02:45 nortriptyline HCl Allergy Severe Hives Verified 05/22/17 02:45 [From Pamelor] Home Medications: Ambulatory Orders Levothyroxine [Synthroid -] 100 mcg PO DAILY 11/09/16 Albuterol Sulfate Inhaler - [Ventolin HFA Inhaler -] 1 - 2 inh PO Q4H PRN #1 inhaler 11/14/16 Norgestimate-Ethinyl Estradiol [Norg-Ee 0.18-0.215-0.25/0.035] 1 each PO DAILY 05/22/17 Review of Systems - Review of Systems Able to Perform ROS?: Yes Comments:: 05/22/17 01:37 CONSTITUTIONAL: Absent: fever, chills, diaphoresis, generalized weakness, malaise, loss of appetite HEENT: Absent: rhinorrhea, nasal congestion, throat pain, throat swelling, difficulty swallowing, mouth swelling, ear pain, eye pain, visual Changes CARDIOVASCULAR: Absent: chest pain, syncope, palpitations, irregular heart rate, lightheadedness , peripheral edema RESPIRATORY: Absent: cough, shortness of breath, dyspnea with exertion, orthopnea, wheezing, stridor, hemoptysis GASTROINTESTINAL: Absent: abdominal pain, abdominal distension, nausea, vomiting, diarrhea, constipation, melena, hematochezia GENITOURINARY: Absent: dysuria, frequency, urgency, hesitancy, hematuria, flank pain, genital pain MUSCULOSKELETAL: Absent: myalgia, arthralgia, joint swelling SKIN: Absent: rash, itching, pallor HEMATOLOGIC/IMMUNOLOGIC: Absent: easy bleeding, easy bruising, lymphadenopathy, frequent infections ENDOCRINE: Absent: unexplained weight gain, unexplained weight loss, heat intolerance, cold intolerance NEUROLOGIC: +seizure, Absent: headache, focal weakness or paresthesias, dizziness, unsteady gait, mental status changes, bladder or bowel incontinence PSYCHIATRIC: Absent: anxiety, depression, suicidal or homicidal ideation, hallucinations. <Heike Latham - Last Filed: 05/22/17 01:37> *Physical Exam - Vital Signs Last Vital Signs Temp Pulse Resp BP Pulse Ox 98.6 F 83 14 108/79 99 05/22/17 00:40 05/22/17 00:40 05/22/17 00:40 05/22/17 00:40 05/22/17 00:40 - Physical Exam Comments: 05/22/17 01:37 GENERAL: Well developed, well nourished. Awake and alert. In no acute distress. Answering questions appropriately. HEENT: Normocephalic, atraumatic. PERRLA, EOMI. No conjunctival pallor. Sclerae are non -icteric. Moist mucous membranes. Oropharynx is clear. NECK: Supple. Full ROM. No JVD. Carotid pulses 2+ and symmetric, without bruits. No thyromegaly. No lymphadenopathy. CARDIOVASCULAR: +electronic monitor on L upper chest wall. Regular rate and rhythm. No murmurs, rubs, or gallops. Distal pulses are 2+ and symmetric. PULMONARY: No evidence of respiratory distress. Lungs clear to auscultation bilaterally. No wheezing, rales or rhonchi. ABDOMINAL: Soft. Non-tender. Non-distended. No rebound or guarding. No organomegaly. Normoactive bowel sounds. MUSCULOSKELETAL Normal range of motion at all joints. No bony deformities or tenderness. No CVA tenderness. EXTREMITIES: No cyanosis. No clubbing. No edema. No calf tenderness. SKIN: Warm and dry. Normal capillary refill. No rashes. No jaundice. NEUROLOGICAL: Alert, awake, appropriate. Cranial nerves 2-12 intact. No deficits to light touch and temperature in face, upper extremities and lower extremities. No motor deficits in the in face, upper extremities and lower extremities. Normoreflexic in the upper and lower extremities. Normal speech. Toes are downgoing bilaterally. Gait is normal without ataxia. PSYCHIATRIC: Cooperative. Good eye contact. Appropriate mood and affect. <Heike Latham - Last Filed: 05/22/17 01:37> - Vital Signs Last Vital Signs Temp Pulse Resp BP Pulse Ox 98.6 F 83 14 108/79 99 05/22/17 00:40 05/22/17 00:40 05/22/17 00:40 05/22/17 00:40 05/22/17 00:40 <Jay Gilbert - Last Filed: 05/22/17 05:14> ED Treatment Course - LABORATORY CBC & Chemistry Diagram: 05/22/17 01:30 05/22/17 01:30 <Jay Gilbert - Last Filed: 05/22/17 05:14> Medical Decision Making - Medical Decision Making 05/22/17 05:14 Dr. Gilbert: The scribe's documentation has been prepared under my direction and personally reviewed by me in its entirery. I confirm that the note above accurately reflects all work, treatment, procedures, and medical decision making performed by me. <Jay Gilbert - Last Filed: 05/22/17 05:14> *DC/Admit/Observation/Transfer - Attestations Scribe Attestion: 10/18/17 01:38 Documentation prepared by Heike Latham, acting as medical delivery technician for Jay Gilbert DO. <Heike Latham - Last Filed: 05/22/17 01:37> - Discharge Dispostion Admit: Yes <Jay Gilbert - Last Filed: 05/22/17 05:14> Diagnosis at time of Disposition: New onset seizure - Referrals Referrals: Nettie Leal MD [Primary Care Provider] -
[2017-05-22 01:45] LABS: BASOPHIL 0.4 % (0-2.0); EOSINOPHIL 1.1 % (0-4.5); MCH 25.7 pg (25.7-33.7); MCHC 32.2 g/dl (32.0-36.0); MEAN CELL VOLUME 79.8 fl (80-96); MEAN PLT VOLUME 9.6 fl (7.5-11.1); NEUTROPHILS 67.3 % (42.8-82.8); PLATELET COUNT 199 K/MM3 (134-434); RDW 15.2 % (11.6-15.6); WHITE BLOOD COUNT 9.7 K/mm3 (4.0-10.0)
[2017-05-22 01:48] LABS: URINE APPEARANCE CLEAR; URINE BILIRUBIN NEGATIVE (NEGATIVE); URINE BLOOD NEGATIVE (NEGATIVE); URINE COLOR STRAW; URINE GLUCOSE (UA) NEGATIVE (NEGATIVE); URINE KETONE NEGATIVE (NEGATIVE); URINE NITRITE NEGATIVE (NEGATIVE); URINE PROTEIN NEGATIVE (NEGATIVE); URINE UROBILINOGEN NEGATIVE mg/dL (0.2-1.0)
[2017-05-22 02:04] LABS: INR 1.01 (0.82-1.09); PROTHROMBIN TIME (PATIENT) 11.4 SEC (9.98-11.88)
[2017-05-22 02:19] LABS: ALBUMIN 3.1 g/dl (3.4-5.0); ANION GAP 7 (8-16); BILIRUBIN,TOTAL 0.2 mg/dL (0.2-1.0); CALCIUM 8.2 mg/dL (8.5-10.1); CO2 27 mmol/L (21-32); GLUCOSE,RANDOM 88 mg/dL (74-106); SGOT/AST 8 U/L (15-37); SGPT/ALT 14 U/L (12-78); TOT PROT 6.8 g/dl (6.4-8.2)
[2017-05-22 02:21] LABS: ALK PHOS 60 U/L (45-117); CPK 78 IU/L (26-192); TROPONIN I < 0.02 ng/ml (0.00-0.05)
--- NOTE | 2017-05-22 05:20 | PN ---
Teaching Attending Note Name of Resident: Tobias Campa ATTENDING PHYSICIAN STATEMENT I saw and evaluated the patient. I reviewed the resident's note and discussed the case with the resident. I agree with the resident's findings and plan as documented. SUBJECTIVE: 31 yo F with pmhx of hypothyriodism, who presents from home with witnessed seizure. Pt. felt cold and then he felt her hands shaking. States she felt stiff , and was drooling in her mouth. Did not have any prior dizziness, lightheadedness, chest pain or pressure. He states her "eyes rolled back" during the episode. No prior hx. of seizure. OBJECTIVE: Physical: VS: Vital Signs Period Temp Pulse Resp BP Sys/Carl Pulse Ox Last 24 Hr 98.6 F 83 14 108/79 99 GEN: NAD, resting in bed HEENT: NCAT, PERRL, throat without erythema or exudtes CARD: RRR S1, S2 Loop recorder in chest a RESP: CTAB ABD: BSx4, NTD to palpation EXT: - C/C/E NEURO: CN II-XII intact, MS +5/5 CBCD WBC 9.7 K/mm3 (4.0-10.0) D 05/22/17 01:30 RBC 4.27 M/mm3 (3.60-5.2) 05/22/17 01:30 Hgb 11.0 GM/dL (10.7-15.3) 05/22/17 01:30 Hct 34.1 % (32.4-45.2) 05/22/17 01:30 MCV 79.8 fl (80-96) L 05/22/17 01:30 MCHC 32.2 g/dl (32.0-36.0) 05/22/17 01:30 RDW 15.2 % (11.6-15.6) 05/22/17 01:30 Plt Count 199 K/MM3 (134-434) 05/22/17 01:30 MPV 9.6 fl (7.5-11.1) D 05/22/17 01:30 CMP Sodium 138 mmol/L (136-145) 05/22/17 01:30 Potassium 4.1 mmol/L (3.5-5.1) 05/22/17 01:30 Chloride 104 mmol/L (98-107) 05/22/17 01:30 Carbon Dioxide 27 mmol/L (21-32) 05/22/17 01:30 Anion Gap 7 (8-16) L 05/22/17 01:30 BUN 18 mg/dL (7-18) D 05/22/17 01:30 Creatinine 1.0 mg/dL (0.55-1.02) 05/22/17 01:30 Creat Clearance w eGFR > 60 (>60) 05/22/17 01:30 Random Glucose 88 mg/dL (74-106) 05/22/17 01:30 Calcium 8.2 mg/dL (8.5-10.1) L 05/22/17 01:30 Total Bilirubin 0.2 mg/dL (0.2-1.0) 05/22/17 01:30 AST 8 U/L (15-37) L D 05/22/17 01:30 ALT 14 U/L (12-78) D 05/22/17 01:30 Alkaline Phosphatase 60 U/L (45-117) 05/22/17 01:30 Total Protein 6.8 g/dl (6.4-8.2) 05/22/17 01:30 Albumin 3.1 g/dl (3.4-5.0) L 05/22/17 01:30 CARDIAC ENZYMES Creatine Kinase 78 IU/L (26-192) 05/22/17 01:30 Troponin I < 0.02 ng/ml (0.00-0.05) 05/22/17 01:30 Urine Test Results Urine Color Straw 05/22/17 01:30 Urine Appearance Clear 05/22/17 01:30 Urine pH 7.0 (5.0-8.0) 05/22/17 01:30 Urine Protein Negative (NEGATIVE) 05/22/17 01:30 Urine Glucose (UA) Negative (NEGATIVE) 05/22/17 01:30 Urine Ketones Negative (NEGATIVE) 05/22/17 01:30 Urine Blood Negative (NEGATIVE) 05/22/17 01:30 Urine Nitrite Negative (NEGATIVE) 05/22/17 01:30 Urine Bilirubin Negative (NEGATIVE) 05/22/17 01:30 CXR: No acute process EKG: NSR 74, Qtc 417 CT HEAD- Pending ASSESSMENT AND PLAN: 31 F with pmhx of hypothyriodism who presents with Seizure 1.) Seizure - `1st episode - CT HEAD - Neuro consult - UDS 2.) Hypothyriodism - Chk. TSH - C/W Home dose 3.) DVT ppx - Low Risk - SCDS Place in Obs-Tele
[2017-05-22 05:46] LABS: URINE MARIJUANA THC NEGATIVE ng/ml (CUTOFF=50)
--- NOTE | 2017-05-22 05:54 | HP ---
CHIEF COMPLAINT:New onset seizure. PCP: Nettie Leal Winding Inspector: ANTHONY SELLERS [phone] HISTORY OF PRESENT ILLNESS: 31F with PMH of hypothyroidism and asthma who presents to the ED s/p new onset seizure. Patient was going to bed with her significant other and she complained she was cold and her wrapped her up in blankets turned around in bed and then fell asleep. He then felt the bed shaking and when he turned around he describes generalized tonic clonic activity with her eyes rolling behind her head and foaming at the mouth. Denies loss of bowel or bladder function. Upon presentation to the ED she was asymptomatic and had no complaints. Patient does not remember the episode. She is being followed by a ear nose throat physician at [facility] for recurrent chest pain and has an event monitor placed currently due to be returned may 29 2017. She also is to follow with a neurologist for chronic headaches. She denies nausea vomiting fevers GI/ symptoms or shortness of breath. She denies palpitations. She does endorse chest pain which has not changed, chills, and headache. [place] She denies recent travel or any illicit substance use. Patient states she has had many MRIs and CT head which she doesn' t really know the results of but as far as she knows they were negative. She also stated she had these studies done here but nothing found in the EMR. ER course was notable for: (1)CT scan (2)Labs Recent Travel:Denies PAST MEDICAL HISTORY:Asthma hypothyroidism PAST SURGICAL HISTORY:tubal ligation Social History: Smoking:Denies Alcohol:Denies Drugs: Denies Family History: Allergies naproxen Allergy (Severe, Verified 05/22/17 02:45) Hives nortriptyline Allergy (Severe, Verified 05/22/17 02:45) Hives nortriptyline HCl [From Pamelor] Allergy (Severe, Verified 05/22/17 02:45) Hives HOME MEDICATIONS: Home Medications Medication Instructions Recorded Levothyroxine [Synthroid -] 100 mcg PO DAILY 11/09/16 Albuterol Sulfate Inhaler - 1 - 2 inh PO Q4H PRN #1 inhaler 11/14/16 [Ventolin HFA Inhaler -] Norgestimate-Ethinyl Estradiol 1 each PO DAILY 05/22/17 [Norg-Ee 0.18-0.215-0.25/0.035] REVIEW OF SYSTEMS CONSTITUTIONAL: Absent: fever, diaphoresis, generalized weakness, malaise, loss of appetite, weight change Present: chills HEENT: Absent: rhinorrhea, nasal congestion, throat pain, throat swelling, difficulty swallowing, mouth swelling, ear pain, eye pain, visual changes CARDIOVASCULAR: Absent: syncope, palpitations, irregular heart rate, lightheadedness, peripheral edema Present: chest pain RESPIRATORY: Absent: cough, shortness of breath, dyspnea with exertion, orthopnea, wheezing, stridor, hemoptysis GASTROINTESTINAL: Absent: abdominal pain, abdominal distension, nausea, vomiting, diarrhea, constipation, melena, hematochezia GENITOURINARY: Absent: dysuria, frequency, urgency, hesitancy, hematuria, flank pain, genital pain MUSCULOSKELETAL: Absent: myalgia, arthralgia, joint swelling, back pain, neck pain SKIN: Absent: rash, itching, pallor HEMATOLOGIC/IMMUNOLOGIC: Absent: easy bleeding, easy bruising, lymphadenopathy, frequent infections ENDOCRINE: Absent: unexplained weight gain, unexplained weight loss, heat intolerance, cold intolerance NEUROLOGIC: Absent: focal weakness or paresthesias, dizziness, unsteady gait, mental status changes, bladder or bowel incontinence Present: headache, seizure PSYCHIATRIC: Absent: anxiety, depression, suicidal or homicidal ideation, hallucinations. PHYSICAL EXAMINATION Vital Signs - 24 hr 05/22/17 00:40 Temperature 98.6 F Pulse Rate 83 Respiratory 14 Rate Blood Pressure 108/79 O2 Sat by Pulse 99 Oximetry (%) GENERAL: Awake, alert, and fully oriented, in no acute distress. HEAD: Normal with no signs of trauma. EYES: Pupils equal, round and reactive to light, extraocular movements intact, sclera anicteric, conjunctiva clear. EARS, NOSE, THROAT: Moist mucous membranes. NECK: Normal range of motion, supple without JVD LUNGS: Breath sounds equal, clear to auscultation bilaterally. No wheezes, and no crackles. HEART: Regular rate and rhythm, normal S1 and S2 without murmur ABDOMEN: Soft, obese, nontender, not distended, normoactive bowel sounds, no guarding, no rebound, no masses. MUSCULOSKELETAL: Normal range of motion at all joints. No bony deformities or tenderness. No CVA tenderness. UPPER EXTREMITIES: 2+ pulses, warm, well-perfused. No peripheral edema. LOWER EXTREMITIES: 2+ pulses, warm, well-perfused. No calf tenderness. No peripheral edema. NEUROLOGICAL: Cranial nerves II-XII intact. Normal speech. global muscle strength 5/5. NIHSS 0 2+ biceps and knee jerk bilaterally. PSYCHIATRIC: slightly withdrawn otherwise appropriate mood and affect. SKIN: Warm, dry, normal turgor Laboratory Results - last 24 hr 05/22/17 05/22/17 05/22/17 01:30 01:30 01:30 WBC 9.7 D RBC 4.27 Hgb 11.0 Hct 34.1 MCV 79.8 L MCH 25.7 MCHC 32.2 RDW 15.2 Plt Count 199 MPV 9.6 D Neutrophils % 67.3 D Lymphocytes % 25.7 D Monocytes % 5.5 Eosinophils % 1.1 Basophils % 0.4 PT with INR 11.40 INR 1.01 Sodium Potassium Chloride Carbon Dioxide Anion Gap BUN Creatinine Creat Clearance w eGFR Random Glucose Lactic Acid Calcium Total Bilirubin AST ALT Alkaline Phosphatase Creatine Kinase Troponin I Total Protein Albumin Urine Color Straw Urine Appearance Clear Urine pH 7.0 Urine Protein Negative Urine Glucose (UA) Negative Urine Ketones Negative Urine Blood Negative Urine Nitrite Negative Urine Bilirubin Negative Urine Urobilinogen Negative Urine HCG, Qual Opiates Screen Methadone Screen Barbiturate Screen Phencyclidine Screen Ur Amphetamines Screen MDMA (Ecstasy) Screen Benzodiazepines Screen Cocaine Screen U Marijuana (THC) Screen Blood Type Antibody Screen 05/22/17 05/22/17 05/22/17 01:30 01:30 01:30 WBC RBC Hgb Hct MCV MCH MCHC RDW Plt Count MPV Neutrophils % Lymphocytes % Monocytes % Eosinophils % Basophils % PT with INR INR Sodium 138 Potassium 4.1 Chloride 104 Carbon Dioxide 27 Anion Gap 7 L BUN 18 D Creatinine 1.0 Creat Clearance w eGFR > 60 Random Glucose 88 Lactic Acid Calcium 8.2 L Total Bilirubin 0.2 AST 8 L D ALT 14 D Alkaline Phosphatase 60 Creatine Kinase 78 Troponin I < 0.02 Total Protein 6.8 Albumin 3.1 L Urine Color Urine Appearance Urine pH Urine Protein Urine Glucose (UA) Urine Ketones Urine Blood Urine Nitrite Urine Bilirubin Urine Urobilinogen Urine HCG, Qual Negative Opiates Screen Methadone Screen Barbiturate Screen Phencyclidine Screen Ur Amphetamines Screen MDMA (Ecstasy) Screen Benzodiazepines Screen Cocaine Screen U Marijuana (THC) Screen Blood Type A NEGATIVE Antibody Screen Negative 05/22/17 05/22/17 01:30 05:30 WBC RBC Hgb Hct MCV MCH MCHC RDW Plt Count MPV Neutrophils % Lymphocytes % Monocytes % Eosinophils % Basophils % PT with INR INR Sodium Potassium Chloride Carbon Dioxide Anion Gap BUN Creatinine Creat Clearance w eGFR Random Glucose Lactic Acid 0.6 Calcium Total Bilirubin AST ALT Alkaline Phosphatase Creatine Kinase Troponin I Total Protein Albumin Urine Color Urine Appearance Urine pH Urine Protein Urine Glucose (UA) Urine Ketones Urine Blood Urine Nitrite Urine Bilirubin Urine Urobilinogen Urine HCG, Qual Opiates Screen Negative Methadone Screen Negative Barbiturate Screen Negative Phencyclidine Screen Negative Ur Amphetamines Screen Negative MDMA (Ecstasy) Screen Negative Benzodiazepines Screen Negative Cocaine Screen Negative U Marijuana (THC) Screen Negative Blood Type Antibody Screen EKG: NSR Normal axis CT head: no acute pathology-prelim ASSESSMENT/PLAN: 31F presents to the ED with new onset seizure. New onset seizure: CT head negative. Utox negative. Electrolytes WNL Admit to inpatient telemetry Neurology consult f/u final CT head read neurology to decide about further work up i.e. MRI/EEG Neurochecks Hypothyroidism: Check TSH continue home dose of Synthroid 75mcg po QAM Atypical chest pain: chronic and recurrent event recorder in place troponin negative patient reminded to continue to press the button when she has chest pain f/u with ear nose throat physician as outpatient Headache/chronic migraines: f/u neurologist f/u Final head CT read follow up with neurology as outpatient as scheduled Asthma: not currently active continue albuterol inhaler PRN FEN: No IVF no electrolyte abnormalities regular diet PPx: SCDs/HSQ/Early ambulation No GI PPx indicated no PT consult needed Case discussed with attending Dr. Carrera Visit type - Emergency Visit Emergency Visit: Yes Care time: The patient presented to the Emergency Department on the above date and was hospitalized for further evaluation of their emergent condition. - New Patient This patient is new to me today: Yes Date on this admission: 05/22/17 - Critical Care Critical Care patient: No
[2017-05-22] MEDS ORDERED: ALBUTEROL SO4 18 GM HFA INHALER IH PRN (06:03)
[2017-05-22] MEDS ORDERED: LEVOTHYROXINE NA 25 MCG TABLET (FP) ONE (06:17)
[2017-05-22] MEDS ORDERED: HEPARIN NA (PORCINE) 5,000 UNITS/ML 1ML VIAL ONE (06:18)
[2017-05-22] MEDS: LEVOTHYROXINE NA 75 MCG TABLET (FP) PO SCH (07:24)
[2017-05-22] MEDS: HEPARIN NA (PORCINE) 5,000 UNITS/ML 1ML VIAL SQ SCH ×3 (07:24→21:38)
--- NOTE | 2017-05-22 08:43 | PN ---
Physical Exam: SUBJECTIVE: Patient seen and examined C/o of generalized body pains. Has no fever, n/v. Patient had a witnessed tonic seizure per and thinks that is contributing to the body pain. OBJECTIVE: Vital Signs Period Temp Pulse Resp BP Sys/Carl Pulse Ox Last 24 Hr 98.4 F 71 18 96/73 98 GENERAL: The patient is awake, alert, and fully oriented, in no acute distress. HEAD: Normal with no signs of trauma. EYES: PERRL, extraocular movements intact, sclera anicteric, conjunctiva clear. No ptosis. ENT: Ears normal, nares patent, oropharynx clear without exudates, moist mucous membranes. No bleeding lips or gums noted NECK: Trachea midline, full range of motion, supple. LUNGS: Breath sounds equal, clear to auscultation bilaterally, no wheezes, no crackles, no accessory muscle use. Loop recorder on L chest. HEART: Regular rate and rhythm, S1, S2 without murmur, rub or gallop. ABDOMEN: Soft, nontender, nondistended, normoactive bowel sounds, no guarding, no rebound, no hepatosplenomegaly, no masses. EXTREMITIES: 2+ pulses, warm, well-perfused, no edema. NEUROLOGICAL: No facial droop, no loss of sensation. No tongue or uvula deviation. Normal shoulder shrug. Power 5/5 globally. Tone, normal globally. Normal reflexes globallly. Babinski downward. Normal speech, gait not observed. PSYCH: Normal mood, normal affect. Laboratory Results - last 24 hr 05/22/17 05:30 Opiates Screen Negative Methadone Screen Negative Barbiturate Screen Negative Phencyclidine Screen Negative Ur Amphetamines Screen Negative MDMA (Ecstasy) Screen Negative Benzodiazepines Screen Negative Cocaine Screen Negative U Marijuana (THC) Screen Negative Active Medications Generic Name Dose Route Start Last Admin Trade Name Freq PRN Reason Stop Dose Admin Albuterol Sulfate 2 puff 05/22/17 06:03 Ventolin Hfa Inhaler - IH Q4H PRN Wheezing Heparin Sodium (Porcine) 5,000 unit 05/22/17 06:15 05/22/17 07:24 Heparin - SQ 5,000 unit TID [facility] Administration Levothyroxine Sodium 75 mcg 05/22/17 07:00 05/22/17 07:24 Synthroid - PO 75 mcg DAILY@0700 [facility] Administration ASSESSMENT/PLAN: 31F PMHx of asthma, hypothyroidism, s/p loop recoder for chest pain, presents to the ED with new onset seizure. #New onset seizure: No known cause identified at this time Not likely infective, no medication change noted, CT head negative. Utox negative. Electrolytes WNL Admit to inpatient telemetry Neurology consult _ Dr Mata saw Per Dr Mata-MRI of head w/witjout contrast, EEG No seizure medications for now Neurochecks #Hypothyroidism: TSH- 15.00, excessively high, could be secondarily elevated 2/2 to seizure event repeat TSH continue home dose of Synthroid 75mcg po QAM #Atypical chest pain: chronic and recurrent event recorder in place- to investigate interrogation here, troponin negative patient reminded to continue to press the button when she has chest pain f/u with supply coordinator as outpatient #Headache/chronic migraines: head CT- negative MRI- event recorder will need to be removed before MRI follow up with neurology as outpatient as scheduled #Asthma: not currently active continue albuterol inhaler PRN #FEN: No IVF no electrolyte abnormalities regular diet #Prophylaxis SQ heparin 5000u tids Visit type - Emergency Visit Emergency Visit: Yes ED Registration Date: 05/22/17 Care time: The patient presented to the Emergency Department on the above date and was hospitalized for further evaluation of their emergent condition. - New Patient This patient is new to me today: Yes Date on this admission: 05/22/17 - Critical Care Critical Care patient: No - Discharge Referral Referred to [facility] Med P.C.: No
--- NOTE | 2017-05-22 09:13 | CON.NEURO ---
Consult - Alcohol/Substance Use Hx Alcohol Use: No - Smoking History Smoking history: Never smoked Have you smoked in the past 12 months: No Home Medications - Allergies Allergies/Adverse Reactions: Allergies Allergy/AdvReac Type Severity Reaction Status Date / Time naproxen Allergy Severe Hives Verified 05/22/17 02:45 nortriptyline Allergy Severe Hives Verified 05/22/17 02:45 nortriptyline HCl Allergy Severe Hives Verified 05/22/17 02:45 [From Pamelor] - Home Medications Home Medications: Ambulatory Orders Levothyroxine [Synthroid -] 75 mcg PO DAILY 11/09/16 Albuterol Sulfate Inhaler - [Ventolin HFA Inhaler -] 1 - 2 inh PO Q4H PRN #1 inhaler 11/14/16 Norgestimate-Ethinyl Estradiol [Norg-Ee 0.18-0.215-0.25/0.035] 1 each PO DAILY 05/22/17 Physical Exam-Neuro Vital Signs: Vital Signs Temperature 98.4 F 05/22/17 08:00 Pulse Rate 71 05/22/17 08:00 Respiratory Rate 18 05/22/17 08:00 Blood Pressure 96/73 05/22/17 08:00 O2 Sat by Pulse Oximetry (%) 98 05/22/17 08:00 Labs: INR, PTT INR 1.01 (0.82-1.09) 05/22/17 01:30 Assessment/Plan cc new onset seizure 31 year old female history of hypothyroidism, asthma, on ocp. She had one episode of tonic clonic seizures. with tongue bite and Patinet did lost consiouness. Patient recently saw distribution engineering technologist for chest pain and she was on holter monitoring. She also suffers from chronic headhace and was seen by neurologsit in past and had brain imaging done . She told me that were noraml in past. she had no more episode since last night and ct scan was normal PAST MEDICAL HISTORY:Asthma hypothyroidism PAST SURGICAL HISTORY:tubal ligation Social History: Smoking:Denies Alcohol:Denies Drugs: Denies Family History: Allergies naproxen Allergy (Severe, Verified 05/22/17 02:45) Hives nortriptyline Allergy (Severe, Verified 05/22/17 02:45) Hives nortriptyline HCl [From Pamelor] Allergy (Severe, Verified 05/22/17 02:45) Hives HOME MEDICATIONS: Home Medications Medication Instructions Recorded Levothyroxine [Synthroid -] 100 mcg PO DAILY 11/09/16 Albuterol Sulfate Inhaler - 1 - 2 inh PO Q4H PRN #1 inhaler 11/14/16 [Ventolin HFA Inhaler -] Norgestimate-Ethinyl Estradiol 1 each PO DAILY 05/22/17 [Norg-Ee 0.18-0.215-0.25/0.035] Ros reviewed in chart Neurological Examination Alert oriented x 3, speech is normal, no neck stiffness, CN all intact, eomi, pupils is reactive, face symmetrical Motor is 5/5 all extremity sensation is normal ct head is normal Assessment new onset seizures with lip bite, now normal neurological exam and ct head is normal Hold medication for now would do mri of brain with and without contrast eeg seizure precautions, no driving for six months thanks for consult Rod Marks MD
[2017-05-22 09:47] LABS: URINE LEUK ESTERASE 1+ (NEGATIVE)
[2017-05-22 09:48] LABS: URINE BACTERIA MODERATE /hpf (NEGATIVE); URINE RBC 0-3 /hpf (0-3)
--- NOTE | 2017-05-22 11:48 | EKG ---
Test Reason : Blood Pressure : / mmHG Vent. Rate : 074 BPM Atrial Rate : 074 BPM P-R Int : 150 ms QRS Dur : 084 ms QT Int : 376 ms P-R-T Axes : 023 -04 000 degrees QTc Int : 417 ms POOR DATA QUALITY, INTERPRETATION MAY BE ADVERSELY AFFECTED UNDETERMINED RHYTHM NONSPECIFIC T WAVE ABNORMALITY ABNORMAL ECG WHEN COMPARED WITH ECG OF 02-APR-2017 20:28, CURRENT UNDETERMINED RHYTHM PRECLUDES RHYTHM COMPARISON, NEEDS REVIEW Confirmed by WAYNE HAYS MD ([id number]) on 05/22/2017 11:48:16 AM Referred By: Confirmed By:WAYNE HAYS MD
[2017-05-22] MEDS ORDERED: ACETAMINOPHEN 325 MG TABLET (FP) PO ONE (12:00)
--- NOTE | 2017-05-22 14:28 | PN ---
Teaching Attending Note Name of Resident: Mary Mendez ATTENDING PHYSICIAN STATEMENT I saw and evaluated the patient. I reviewed the resident's note and discussed the case with the resident. I agree with the resident's findings and plan as documented. SUBJECTIVE: no Forte , no visual changes, no fever or chills. light neck pain but no rigidity. OBJECTIVE: NAD , MMM CV: RRR, Lungs : CTAB ext : no edema neuro: EOMI, round equal reactive pupils, has no facial droop. uvula an tongue at mid line. Nl facial sensation. strength 5/5 in upper and lower ext proximally and distally. sensation to light touch NL. 2+ knee jerk and biceps b/ l. downward babinski's , Nl nose to finger supple neck ASSESSMENT AND PLAN: 31 y/o lady with h/o Asthma , hypothyroidism who presented with a seizure like activity 1- New onset seizure: description of activity fits a seizure . so far no explanation ( no evidence of infection , or drug ingestion, or CT scan finding . No evidence of meningitis ) - MRI of brain - seizure precautions - no need for AED - will try to interrogate the event monitor to see if arrhythmias are caught at that time . 2- h/o Hypothyroidism: TSH of 15 . not clear if elevated due to event or a dov elevation will repeat 3- chronic FORTE : tylenol . MRI pending dispo : monitor till am .
--- NOTE | 2017-05-22 14:29 | PN ---
Physical Exam: SUBJECTIVE: Patient seen and examined C/o of headache, no neck stiffness, no fevers. OBJECTIVE: Vital Signs Period Temp Pulse Resp BP Sys/Carl Pulse Ox Last 24 Hr 97.9 F-98.4 F 71-87 18-18 94-96/53-73 98 GENERAL: The patient is awake, alert, and fully oriented, in no acute distress. HEAD: Normal with no signs of trauma. EYES: PERRL, extraocular movements intact, sclera anicteric, conjunctiva clear. No ptosis. ENT: oropharynx clear without exudates, moist mucous membranes. NECK: full range of motion, supple. LUNGS: Breath sounds equal, clear to auscultation bilaterally, no wheezes, no crackles HEART: Loop recorder in place on L side of chest. Regular rate and rhythm, S1, S2 without murmur, rub or gallop. ABDOMEN: Soft, nontender, nondistended, normoactive bowel sounds, no guarding, no rebound, no hepatosplenomegaly, no masses. EXTREMITIES: 2+ pulses, warm, well-perfused, no edema. NEUROLOGICAL: No facial droop, no Cranial nerves II through XII grossly intact. Normal speech, gait not observed. PSYCH: Normal mood, normal affect. SKIN: Warm, dry, normal turgor, no rashes or lesions noted Laboratory Results - last 24 hr 05/22/17 05:30 Opiates Screen Negative Methadone Screen Negative Barbiturate Screen Negative Phencyclidine Screen Negative Ur Amphetamines Screen Negative MDMA (Ecstasy) Screen Negative Benzodiazepines Screen Negative Cocaine Screen Negative U Marijuana (THC) Screen Negative Active Medications Generic Name Dose Route Start Last Admin Trade Name Freq PRN Reason Stop Dose Admin Albuterol Sulfate 2 puff 05/22/17 06:03 Ventolin Hfa Inhaler - IH Q4H PRN Wheezing Heparin Sodium (Porcine) 5,000 unit 05/22/17 06:15 05/22/17 07:24 Heparin - SQ 5,000 unit TID [facility] Administration Levothyroxine Sodium 75 mcg 05/22/17 07:00 05/22/17 07:24 Synthroid - PO 75 mcg DAILY@0700 [facility] Administration ASSESSMENT/PLAN:
[2017-05-22] MEDS ORDERED: SODIUM CHLORIDE 500 ML IV STA (20:46)
[2017-05-22] MEDS ORDERED: SODIUM CHLORIDE 1,000 ML IV SCH (22:00)
[2017-05-23] MEDS: LEVOTHYROXINE NA 75 MCG TABLET (FP) PO SCH (06:01)
[2017-05-23] MEDS: HEPARIN NA (PORCINE) 5,000 UNITS/ML 1ML VIAL SQ SCH ×2 (06:01→14:06)
--- NOTE | 2017-05-23 07:47 | PN ---
Physical Exam: SUBJECTIVE: Patient seen and examined Patient said to have been hypotensive last night at 84/52. Received 500mls bolus of Nsaline and is on maintenance fluid at 50mls/hr No other c/o. No headaches, fevers, N/v/ neck pain or stiffness. No SOB/ dizziness. Patient said she had the episode of hypotension while here. Did not get the MRI because she has the recorder done, although the company had recommended she take it off herself to get an MRI done. OBJECTIVE: Vital Signs Period Temp Pulse Resp BP Sys/Carl Pulse Ox Last 24 Hr 97.9 F-98.9 F 71-87 18-18 84-105/47-73 98-98 GENERAL: The patient is awake, alert, and fully oriented, in no acute distress. HEAD: Normal with no signs of trauma. EYES: PERRL, extraocular movements intact, sclera anicteric, conjunctiva clear. No ptosis. ENT: Ears normal, nares patent, oropharynx clear without exudates, moist mucous membranes. NECK: Trachea midline, full range of motion, supple. LUNGS: Breath sounds equal, clear to auscultation bilaterally, no wheezes, no crackles, no accessory muscle use. Loop recorder in place. HEART: Regular rate and rhythm, S1, S2 without murmur, rub or gallop. ABDOMEN: Soft, nontender, nondistended, normoactive bowel sounds, no guarding, no rebound, no hepatosplenomegaly, no masses. EXTREMITIES: 2+ pulses, warm, well-perfused, no edema. NEUROLOGICAL: Cranial nerves II through XII grossly intact. Normal speech, gait not observed. PSYCH: Normal mood, normal affect. SKIN: Warm, dry, normal turgor, no rashes or lesions noted Active Medications Generic Name Dose Route Start Last Admin Trade Name Freq PRN Reason Stop Dose Admin Albuterol Sulfate 2 puff 05/22/17 06:03 Ventolin Hfa Inhaler - IH Q4H PRN Wheezing Heparin Sodium (Porcine) 5,000 unit 05/22/17 06:15 05/23/17 06:01 Heparin - SQ 5,000 unit TID [facility] Administration Sodium Chloride 1,000 mls @ 50 mls/hr 05/22/17 22:00 05/22/17 22:30 Normal Saline - IV 05/23/17 20:49 50 mls/hr ASDIR [facility] Administration Levothyroxine Sodium 75 mcg 05/22/17 07:00 05/23/17 06:01 Synthroid - PO 75 mcg DAILY@0700 [facility] Administration ASSESSMENT/PLAN:
[2017-05-23 08:30] LABS: BASOPHIL 0.4 % (0-2.0); EOSINOPHIL 1.6 % (0-4.5); MCH 25.5 pg (25.7-33.7); MEAN CELL VOLUME 79.6 fl (80-96); MEAN PLT VOLUME 9.4 fl (7.5-11.1); NEUTROPHILS 59.3 % (42.8-82.8); PLATELET COUNT 193 K/MM3 (134-434); WHITE BLOOD COUNT 6.4 K/mm3 (4.0-10.0)
[2017-05-23 08:43] LABS: ANION GAP 7 (8-16); BILIRUBIN,TOTAL 0.3 mg/dL (0.2-1.0); CALCIUM 7.7 mg/dL (8.5-10.1); CO2 24 mmol/L (21-32); CREATININE 0.8 mg/dL (0.55-1.02); GLUCOSE,RANDOM 86 mg/dL (74-106); MAGNESIUM 2.4 mg/dL (1.8-2.4); PHOSPHOROUS 2.8 mg/dL (2.5-4.9); SGOT/AST 12 U/L (15-37); SGPT/ALT 16 U/L (12-78); TOT PROT 6.7 g/dl (6.4-8.2)
[2017-05-23 08:52] LABS: ALK PHOS 58 U/L (45-117)
--- NOTE | 2017-05-23 13:57 | PN ---
Teaching Attending Note Name of Resident: Mary Mendez ATTENDING PHYSICIAN STATEMENT I saw and evaluated the patient. I reviewed the resident's note and discussed the case with the resident. I agree with the resident's findings and plan as documented. SUBJECTIVE: no fever chills, or FORTE . no weakness or numbness or tingling. was slightly hypotensive last night and was started on IVF OBJECTIVE: NAD , MMM CV: RRR, Lungs : CTAB ext : no edema neuro: EOMI, round equal reactive pupils, has no facial droop. uvula an tongue at mid line. Nl facial sensation. strength 5/5 in upper and lower ext proximally and distally. sensation to light touch NL. 2+ knee jerk and biceps b/ l. downward babinski's , Nl nose to finger supple neck ASSESSMENT AND PLAN: 31 y/o lady with h/o Asthma , hypothyroidism who presented with a seizure like activity 1- New onset seizure: No clear etiology yet. repeat CT scan showed questionable area of edema in L parieto-occipital area - MRI of brain pending read. - EEG pending - seizure precautions - no need for AED , pending mRI results - interrogation of vent monitor to be done as out pt ,company was called yesterday 2- h/o Hypothyroidism: TSH of 15 initially, dropped to 11 today. elevation is probably due to the seizure and does not accurately reflects condition . will need to repeat in 2 weeks after dc. vont her synthroid at her home dose 3- chronic FORTE : tylenol . MRI pending dispo : to be determined pending MRI results
[2017-05-23 15:12] VITALS: BP 92/58; PULSE 86; TEMP 98.3
--- NOTE | 2017-05-23 17:08 | PN ---
Progress Note (short form) - Note Progress Note: cc new onset seizure 31 year old female history of hypothyroidism, asthma, on ocp. She had one episode of tonic clonic seizures. with tongue bite and Patinet did lost consiouness. Patient recently saw appliance worker for chest pain and she was on holter monitoring. She also suffers from chronic headhace and was seen by neurologsit in past and had brain imaging done . She told me that were noraml in past. she had no more episode since last night and ct scan was normal [place] Neurological Examination Alert oriented x 3, speech is normal, no neck stiffness, CN all intact, eomi, pupils is reactive, face symmetrical Motor is 5/5 all extremity sensation is normal ct head is normal mri is normal except small area of gliosis eeg is unremarkable Assessment new onset seizures with lip bite, now normal neurological exam and ct head is normal Hold medication for now it was discussed with patient seizures precautions and follow up outpatient . she should not be driving for six month , if she had another episode would start AED. thanks for consult Rod Marks MD
--- NOTE | 2017-05-23 18:32 | DS ---
Physical Exam: SUBJECTIVE: Patient seen and examined No new complaints overnight. No seizures, headaches, neck stiffness or fevers noted. 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 OBJECTIVE: Vital Signs Period Temp Pulse Resp BP Sys/Carl Pulse Ox Last 24 Hr 98 F-98.9 F 75-86 16-18 84-105/47-72 98-98 PHYSICAL EXAM GENERAL: The patient is awake, alert, and fully oriented, in no acute distress. HEAD: Normal with no signs of trauma. EYES: PERRL, extraocular movements intact, sclera anicteric, conjunctiva clear. No ptosis. ENT: Ears normal, nares patent, oropharynx clear without exudates, moist mucous membranes. No bleeding lips or gums noted NECK: Trachea midline, full range of motion, supple. LUNGS: Breath sounds equal, clear to auscultation bilaterally, no wheezes, no crackles, no accessory muscle use. Loop recorder on L chest. HEART: Regular rate and rhythm, S1, S2 without murmur, rub or gallop. ABDOMEN: Soft, nontender, nondistended, normoactive bowel sounds, no guarding, no rebound, no hepatosplenomegaly, no masses. EXTREMITIES: 2+ pulses, warm, well-perfused, no edema. NEUROLOGICAL: No facial droop, no loss of sensation. No tongue or uvula deviation. Normal shoulder shrug. Power 5/5 globally. Tone, normal globally. Normal reflexes globallly. Babinski downward. Normal speech, gait not observed. PSYCH: Normal mood, normal affect. LABS Laboratory Results - last 24 hr 05/23/17 05/23/17 05/23/17 05:35 05:35 05:35 WBC 6.4 D RBC 4.16 Hgb 10.6 L Hct 33.1 MCV 79.6 L MCH 25.5 L MCHC 32.0 RDW 15.0 Plt Count 193 MPV 9.4 Neutrophils % 59.3 Lymphocytes % 32.7 D Monocytes % 6.0 Eosinophils % 1.6 Basophils % 0.4 Sodium 138 Potassium 4.2 Chloride 107 Carbon Dioxide 24 Anion Gap 7 L BUN 13 D Creatinine 0.8 Creat Clearance w eGFR > 60 Random Glucose 86 Calcium 7.7 L Phosphorus 2.8 Magnesium 2.4 Total Bilirubin 0.3 D AST 12 L D ALT 16 Alkaline Phosphatase 58 Total Protein 6.7 Albumin 3.0 L TSH 11.20 H D Free T4 1.27 CARDIAC ENZYMES Creatine Kinase 78 IU/L (26-192) 05/22/17 01:30 Troponin I < 0.02 ng/ml (0.00-0.05) 05/22/17 01:30 HOSPITAL COURSE: Date of Admission:05/22/17 Date of Discharge: 05/23/17 31F PMHx of asthma, migraine, hypothyroidism, s/p loop recoder for chest pain, presents to the ED with new onset seizure. #New onset seizure: No known cause identified at this time Not likely infective, no medication change noted, CT head (05/22/17) no evidence of intracranial hemorrhage, edema, midline shift, mass effect, skull fracture. No CT evidence of territorial ischemic changes. CT head (05/23/17) Hypodensities in periphery of L occipital and occipito- parietal areas which are indeterminant but may represent edema. MRI (05/23/17)- No definite cortical abnormalities identified. 3mm nonenhancing R frontal subcortical white matter seen and subtle curvilinear nonenhancing L cortical subcortical white matter both suggestive of gliosis EEG No abnormalities Utox negative. Electrolytes WNL Admitted to inpatient telemetry - no events noted on monitor Follow up with Neurology - Dr Marks Per Dr Mata-No seizure medications for now (first episode) will be reevaluate if repeat episode for antiseizure medications No driving for 6 months Monitor #Hypothyroidism: Initial TSH- 15.00, repeat 11.50 repeat TSH in 2 weeks- lab prescription given, to fax results to and follow up with primary doctor- Dr Nettie Leal continue home dose of Synthroid 75mcg po QAM #Atypical chest pain: chronic and recurrent event recorder in place- to be interrogated as an outpatient Follow up with acid maker-Dr Shad Callahan as an outpatient troponin negative patient reminded to continue to press the button when she has chest pain #Headache/chronic migraines: head CT- negative MRI- negative follow up with neurology- Dr Marks as outpatient #Asthma: not currently active continue albuterol inhaler PRN Minutes to complete discharge: 45 Discharge Summary Reason For Visit: NEW ONSET SEIZURE Current Active Problems Hypotension (Acute) New onset seizure (Acute) Hypothyroidism (Chronic) Migraines (Chronic) Condition: Stable - Instructions Diet, Activity, Other Instructions: Seizure; You were admitted for a seizure You had CT scan of the head done You also had MRI of the brain done You had an EEG to check for abnormal waves in your brain that could cause seizures The tests were normal as reviewed by the neurologist- Dr Marks There was nothing abnormal detected from examination of your nerves Please follow up with Dr Mata as an outpatient Please ensure you are closely monitored at home As a precaution, do not drive for 6 months If you have a repeat seizure you may have to start medications to prevent seizures History of Migraines Please follow up as an outpatient with Dr Marks Chest pain: Follow up with your acid maker - Dr Shad Mckeon for your loop recorder to be read as an outpatient Thyroid: We are giving you a prescription to have blood checked for your thyroid levels in 2 weeks time Please fax the results to your primary care provider-Dr Nettie Leal That will determine whether or not you will keep your synthroid dose the same or not Asthma You did not have any asthma attacks while here Please continue using your inhaler as an outpatient as needed Please continue with your other home medications as prescribed Follow up with your primary doctor in a week's time If you have another seizure episode or recurrent dizziness or feel faint, or if you develop fevers or neck stiffness, please go to the nearest emergency room Referrals: Rod Marks MD [Staff Physician] - 2 Weeks (Please see the neurologist Dr Marks in 2 weeks to follow up the results of your EEG and for treatment of your migraine) Nettie eLal MD [Primary Care Provider] - 1 Week (Follow up with your primary care provider in one week and fax him the result of your TSH when you do it in 2 weeks) Disposition: HOME - Home Medications Comprehensive Discharge Medication List: Ambulatory Orders Levothyroxine [Synthroid -] 75 mcg PO DAILY 11/09/16 Albuterol Sulfate Inhaler - [Ventolin HFA Inhaler -] 1 - 2 inh PO Q4H PRN #1 inhaler 11/14/16 Norgestimate-Ethinyl Estradiol [Norg-Ee 0.18-0.215-0.25/0.035] 1 each PO DAILY 05/22/17 Miscellaneous Drug Not In Syst [Outpatient Lab Test] 1 each ASDIR #1 misc This patient is new to me today: No Emergency Visit: Yes ED Registration Date: 05/22/17 Care time: The patient presented to the Emergency Department on the above date and was hospitalized for further evaluation of their emergent condition. Critical Care patient: No - Discharge Referral Referred to [facility] No
== END 2017-05-23 18:17 | disposition home or self-care (01) | DRG 53 ==
LOC: JER 00:30 → JERBED 05:13 → J4S 10:36
PROVIDERS: ADMIT Internal Medicine; ATTEND Internal Medicine
DX: G40.409 Other generalized epilepsy and epileptic syndromes, not intractable, without status epilepticus (principal); E03.9 Hypothyroidism, unspecified; J45.909 Unspecified asthma, uncomplicated; R07.89 Other chest pain; G43.909 Migraine, unspecified, not intractable, without status migrainosus
CPT/HCPCS: 36415; 70450-TC; 70553-TC; 71010-TC; 80053; 80307; 81003; 81015; 82550; 83605; 83735; 84100; 84439; 84443; 84484; 84703; 85025; 85610; 86850; 86900; 86901; 93005; 93010; 95816; 99285-25; J1644

== ENCOUNTER 2017-08-20 11:43 | Emergency (ER) | payer OTHER ==
[2017-08-20] MEDS ORDERED: methylPREDNISolone NA SUCC 125 MG/2 ML VIAL IVPB ONE (11:56)
[2017-08-20] MEDS ORDERED: FAMOTIDINE IV 20 MG/12 ML VIAL IVPUSH ONE (11:57)
[2017-08-20] MEDS ORDERED: methylPREDNISolone NA SUCC 125 MG/2 ML VIAL ONE (11:59)
[2017-08-20] MEDS ORDERED: FAMOTIDINE 20 MG/50 ML IVPB 20 MG/50 ML MG IVPB ONE (11:59)
--- NOTE | 2017-08-20 12:13 | PDOC ---
History of Present Illness - General History Source: Patient Exam Limitations: No Limitations - History of Present Illness Initial Comments: 08/20/17 12:36 The patient is a 31 year old female with a significant PMH of hypothyroidism, asthma, known allergies to medications and epileptic seizures on keppra who presents to the emergency department with periorbital swelling that began approximately at 10AM. The patient states she took her synthroid and keppra at 6AM, went back to sleep, and then woke up around 10AM when she noted swelling around both eyes. The patient notes she had difficulty opening her eyes with mild itchiness and prompted her significant other to call 911. The patient received Benadryl on the ambulance and has noticed some improvement. The patient states she last saw her neurologist, Dr. Mills, on 08/16/17 which increased her Keppra dose from 500mg to 750mg. Her next appointment with her neurologist is in September. The patient denies any changes in skin care products or new foods. The patient denies any associated rashes, hives, or lesions. The patient denies any difficulty swallowing, breathing, or speaking, The patient denies chest pain, shortness of breath, headache and dizziness. Denies fever, chills, nausea, vomit, diarrhea and constipation. Denies dysuria, frequency, urgency and hematuria. Allergies: Naproxen, Nortriptyline Past surgical history: None reported. Social history: No reported alcohol, cigarette, or drug use. Neurologist: Laura Hall <Dayanna Ponce - Last Filed: 08/20/17 12:43> <Talha Thomas - Last Filed: 08/20/17 14:53> - General Chief Complaint: Allergic Reaction Stated Complaint: Allergic Reaction Time Seen by Provider: 08/20/17 11:49 Past History <Dayanna Ponce - Last Filed: 08/20/17 12:43> - Past Medical History Anemia: No Asthma: Yes Cancer: No Cardiac Disorders: Yes CVA: No COPD: No CHF: No Dementia: No Diabetes: No GI Disorders: No Disorders: No HTN: No Hypercholesterolemia: No Liver Disease: No Seizures: No (new episode of seizure 05/21) Thyroid Disease: Yes (HYPOTHYROID) - Surgical History Abdominal Surgery: No Appendectomy: No Cardiac Surgery: No Cholecystectomy: No Lung Surgery: No Neurologic Surgery: No - Immunization History Immunization Up to Date: Yes - Suicide/Smoking/Psychosocial Hx Smoking History: Never smoked Have you smoked in the past 12 months: No Information on smoking cessation initiated: No Hx Alcohol Use: No Drug/Substance Use Hx: No Substance Use Type: None <GiorgioMichael carmonaTalha - Last Filed: 08/20/17 14:53> - Past Medical History Allergies/Adverse Reactions: Allergies Allergy/AdvReac Type Severity Reaction Status Date / Time naproxen Allergy Severe Hives Verified 06/10/17 10:37 nortriptyline Allergy Severe Hives Verified 06/10/17 10:37 nortriptyline HCl Allergy Severe Hives Verified 06/10/17 10:37 [From [facility]] Home Medications: Ambulatory Orders Lamotrigine [Lamictal] 50 mg PO DAILY #20 tablet 08/20/17 Levothyroxine [Synthroid -] 88 mcg PO DAILY 08/20/17 Methylprednisolone [Medrol Dose Stefan] 4 mg PO ASDIR #21 tablet 08/20/17 Review of Systems - Review of Systems Constitutional: No: Chills, Fever Respiratory: No: Cough, Shortness of Breath Cardiac (ROS): No: Chest Pain ABD/GI: No: Nausea, Vomiting Integumentary: Yes: Pruritus, Rash Neurological: No: Headache All Other Systems: Reviewed and Negative <GiorgiomathewTalha - Last Filed: 08/20/17 14:53> *Physical Exam - Vital Signs Last Vital Signs Temp Pulse Resp BP Pulse Ox 97.7 F 89 20 106/65 98 08/20/17 11:55 08/20/17 11:55 08/20/17 11:55 08/20/17 11:55 08/20/17 11:55 - Physical Exam Comments: 08/20/17 12:42 GENERAL: The patient is awake, alert, and fully oriented, in no acute distress. HEAD: Normal with no signs of trauma. EYES: (+) Periorbital edema. Pupils equal, round and reactive to light, extraocular movements intact, sclera anicteric, conjunctiva clear with no pallor. ENT: Ears normal, nares patent, oropharynx clear without exudates. Moist mucous membranes. NECK: Normal range of motion, supple without lymphadenopathy, JVD, or masses. LUNGS: Breath sounds equal, clear to auscultation bilaterally. No wheeze/ crackles. HEART: Regular rate and rhythm, normal S1 and S2 without murmur or rub. ABDOMEN: Soft/nontender/nondistended. BS wnl. No guarding or rebound. No palpable masses. No hepatosplenomegaly. EXTREMITIES: Normal range of motion, no edema. No clubbing or cyanosis. No cords , erythema, or tenderness. NEUROLOGICAL: Cranial nerves II through XII grossly intact. Normal speech, normal gait. PSYCH: Normal mood, normal affect. SKIN: Warm, Dry, normal turgor, no rashes or lesions noted. <Dayanna Ponce - Last Filed: 08/20/17 12:43> - Vital Signs Last Vital Signs Temp Pulse Resp BP Pulse Ox 97.7 F 89 20 106/65 98 08/20/17 11:55 08/20/17 11:55 08/20/17 11:55 08/20/17 11:55 08/20/17 11:55 <Talha Thomas - Last Filed: 08/20/17 14:53> ED Treatment Course - Medications Given in the ED: ED Medications Discontinued Medications Generic Name Dose Route Start Last Admin Trade Name Freq PRN Reason Stop Dose Admin Famotidine 20 mg in 12 mls @ 144 mls/hr 08/20/17 11:57 08/20/17 12:09 Pepcid 20 Mg/12 Ml Push IVPUSH 08/20/17 12:01 144 mls/hr ONCE ONE Administration Methylprednisolone Sodium Succinate 125 mg 08/20/17 11:56 08/20/17 12:00 Solu-Medrol - IVPB 08/20/17 11:57 125 mg ONCE ONE Administration <Dayanna Ponce - Last Filed: 08/20/17 12:43> - Medications Given in the ED: ED Medications Discontinued Medications Generic Name Dose Route Start Last Admin Trade Name Freq PRN Reason Stop Dose Admin Famotidine 20 mg in 12 mls @ 144 mls/hr 08/20/17 11:57 08/20/17 12:09 Pepcid 20 Mg/12 Ml Push IVPUSH 08/20/17 12:01 144 mls/hr ONCE ONE Administration Methylprednisolone Sodium Succinate 125 mg 08/20/17 11:56 08/20/17 12:00 Solu-Medrol - IVPB 08/20/17 11:57 125 mg ONCE ONE Administration <Talha Thomas - Last Filed: 08/20/17 14:53> Medical Decision Making - Medical Decision Making 08/20/17 12:31 A portion of this note was documented by scribe services under my direction. I have reviewed the details of the note, within reason, and agree with the documentation with the following case summary and management plan written by me. 31-year-old female with known ALLERGIES to medications and history of seizures on Keppra presents with urticaria to face. Patient had increased dose of Keppra for the first time this morning around 6 AM, went back to sleep and at 10 AM awoke with facial swelling and itching. Activated EMS, was given Benadryl and symptoms improved in route, still with persistent swelling. No difficulty swallowing or breathing, but some throat discomfort. Vital signs normal. Full sentences, no stridor, airway intact Oropharynx clear without edema Lungs are clear without wheezing or accessory muscle use Positive periorbital edema, urticaria has resolved, no other rash 31-year-old female with localized ALLERGIC reaction to face, no airway or respiratory symptoms. Hemodynamically stable. No clear new exposures, timewise is most correlated to the Keppra. Already received 50 mg of IV Benadryl Will give IV Solu-Medrol and IV Pepcid Period of observation, reassessment, dispo 08/20/17 14:43 feels much better, no airway/respiratory issues, lungs clear, vital signs normal , facial swelling has resolved. requesting discharge, understands return criteria. Discussed with Dr. Marks, agrees with d/cing Keppra pending allergy eval, will switch to lamictal and he will f/u in the office. Will give steroid course for allergy, benadryl prn, understands return criteria. <Talha Thomas - Last Filed: 08/20/17 14:53> *DC/Admit/Observation/Transfer - Attestations Scribe Attestion: 08/20/17 12:46 Documentation prepared by Dayanna Ponce, acting as medical assistant float for Talha Thomas MD. <Dayanna Ponce - Last Filed: 08/20/17 12:43> <Talha Thomas - Last Filed: 08/20/17 14:53> Diagnosis at time of Disposition: Allergic reaction Qualifiers: Encounter type: initial encounter Qualified Code(s): T78.40XA - Allergy, unspecified, initial encounter - Discharge Dispostion Disposition: HOME Condition at time of disposition: Improved - Prescriptions Prescriptions: Lamotrigine [Lamictal] 50 mg PO DAILY #20 tablet Methylprednisolone [Medrol Dose Stefan] 4 mg PO ASDIR #21 tablet - Referrals Referrals: Rod Marks MD [Staff Physician] - Nettie Leal MD [Primary Care Provider] - Marry Malhotra MD [Staff Physician] - - Patient Instructions Printed Discharge Instructions: DI for General Allergic Reactions Additional Instructions: Activity as tolerated. Stay hydrated. Your symptoms were due to an ALLERGIC reaction, possibly to Keppra. While further ALLERGY testing is pending, STOP Keppra and start Lamictal for your seizures as prescribed. We spoke with Dr. Mata and he is aware and will follow-up with you in the office this week. Continue your other medications as previously prescribed by your physician. Take Medrol dosepak as prescribed for the ALLERGIC reaction, you may need further doses of Benadryl if itching or swelling returns. You should follow up with your primary doctor and an Central Office Operator Supervisor as soon as possible regarding today's emergency department visit. Return to the emergency department for any new or concerning symptoms, particularly persistent or worsening swelling or itching, throat swelling or difficulty breathing/swallowing/speaking, seizures. - Post Discharge Activity
[2017-08-20 12:50] VITALS: BMI 31.9
[2017-08-20] MEDS ORDERED: SODIUM CHLORIDE 1,000 ML IV ONE (13:11)
[2017-08-20 15:11] VITALS: BP 103/71; PULSE 71; TEMP 97.9
== END 2017-08-20 15:20 | disposition home or self-care (01) ==
LOC: JER 11:43
PROC: 3E0337Z Introduction of Electrolytic and Water Balance Substance into Peripheral Vein, Percutaneous Approach (ICD-10-PCS; principal; 2017-08-20)
PROC: 3E0333Z Introduction of Anti-inflammatory into Peripheral Vein, Percutaneous Approach (ICD-10-PCS; 2017-08-20)
PROC: 3E033GC Introduction of Other Therapeutic Substance into Peripheral Vein, Percutaneous Approach (ICD-10-PCS; 2017-08-20)
DX: T78.49XA Other allergy, initial encounter (principal); X58.XXXA Exposure to other specified factors, initial encounter
CPT/HCPCS: 96361; 96374; 96375; 99282-25

== ENCOUNTER 2019-01-05 06:41 | Emergency (ER) | payer OTHER | END 2019-01-05 07:39 | disposition home or self-care (01) | LOC: JER 06:41 | DX: K04.7 Periapical abscess without sinus (principal) ==

== ENCOUNTER 2019-01-05 17:15 | Emergency (ER) | payer OTHER ==
--- NOTE | 2019-01-05 17:28 | PDOC ---
Rapid Medical Evaluation Time Seen by Provider: 01/05/19 17:24 Medical Evaluation: Allergies Allergy/AdvReac Type Severity Reaction Status Date / Time naproxen Allergy Severe Hives Verified 01/05/19 06:52 nortriptyline Allergy Severe Hives Verified 01/05/19 06:52 nortriptyline HCl Allergy Severe Hives Verified 01/05/19 06:52 [From [facility]] 01/05/19 17:25 this patient had brief in-patient evaluation cc: chest tightness and shortness of breath x 1 hour PE: upper lip swelling non tender chest order ekg this patient will proceed to ed for further evaluation Discharge Disposition - Diagnosis Chest tightness - Referrals - Patient Instructions - Post Discharge Activity
[2019-01-05 17:31] VITALS: TEMP 98.4; BMI 31.4
--- NOTE | 2019-01-05 18:49 | PDOC ---
History of Present Illness - General Chief Complaint: Chest Pain Stated Complaint: CHEST PAIN/SOB Time Seen by Provider: 01/05/19 17:24 - History of Present Illness Initial Comments: 01/05/19 19:29 The patient is a 33 year old female with a history of hypothyroidism who presents for evaluation of chest pain. The patient reports that she was evaluated here in the ED earlier this morning for a tooth infection. She was discharged with dental follow up tomorrow, however she developed left sided chest pain prompting her re-presentation to the ED for further evaluation. She noted that she took percocet and amoxicillin at home as well. He describes her chest pain as a pounding sensation with associated mild shortness of breath and dizziness. She notes that her symptoms have mildly improved without intervention on presentation to the ED. She denies similar symptoms in the past and otherwise denies recent long travel, OCP use, headache, fevers, chills , nausea, vomiting, abdominal pain, or changes with urination or bowel movements. Past History - Past Medical History Allergies/Adverse Reactions: Allergies Allergy/AdvReac Type Severity Reaction Status Date / Time naproxen Allergy Severe Hives Verified 01/05/19 06:52 nortriptyline Allergy Severe Hives Verified 01/05/19 06:52 nortriptyline HCl Allergy Severe Hives Verified 01/05/19 06:52 [From [facility]] Home Medications: Ambulatory Orders Lamotrigine [Lamictal] 50 mg PO DAILY #20 tablet 08/20/17 Levothyroxine [Synthroid -] 88 mcg PO DAILY 08/20/17 Methylprednisolone [Medrol Dose Stefan] 4 mg PO ASDIR #21 tablet 08/20/17 Anemia: No Asthma: Yes Cancer: No Cardiac Disorders: Yes CVA: No COPD: No CHF: No Dementia: No Diabetes: No GI Disorders: No Disorders: No HTN: No Hypercholesterolemia: No Liver Disease: No Seizures: No (new episode of seizure 05/21) Thyroid Disease: Yes (HYPOTHYROID) - Surgical History Abdominal Surgery: No Appendectomy: No Cardiac Surgery: No Cholecystectomy: No Lung Surgery: No Neurologic Surgery: No - Immunization History Immunization Up to Date: Yes - Suicide/Smoking/Psychosocial Hx Smoking History: Never smoked Have you smoked in the past 12 months: No Information on smoking cessation initiated: No Hx Alcohol Use: No Drug/Substance Use Hx: No Substance Use Type: None Review of Systems - Review of Systems Comments:: 01/05/19 19:40 Constitutional: No fevers, chills, fatigue, malaise HEENT: No Rhinorrhea, nasal congestion, visual changes Cardiovascular: Chest pain. No syncope, palpitations, lightheadedness Respiratory: SOB. No Cough, Hemoptysis, Gastrointestinal: No Abdominal pain, Nausea, Vomiting, Constipation, Diarrhea, Melena Genitourinary: No Dysuria, Frequency, Urgency, Hesitancy, Hematuria, Flank pain Musculoskeletal: No Myalgia, arthralgia Skin: No rashes, itching, bruising, pallor Neurologic: No Headache, Numbness, Weakness, or Tingling Psychiatric: No Hallucinations. No SI or HI *Physical Exam - Vital Signs Last Vital Signs Temp Pulse Resp BP Pulse Ox 98.4 F 85 18 117/79 96 01/05/19 17:28 01/05/19 17:28 01/05/19 17:28 01/05/19 17:28 01/05/19 17:28 - Physical Exam Comments: 01/05/19 19:41 General Appearance: Nourished. No Apparent Distress HEENT: No Pharyngeal Erythema, Tonsillar Exudate, Tonsillar Erythema Neck: No Cervical Lymphadenopathy Respiratory/Chest: Lungs Clear, Normal Breath Sounds. Reproducible tenderness to palpation along the left lower sternal boarder. No Crackles, Rales, Rhonchi , Wheezing Cardiovascular: Regular Rhythm, Regular Rate. No Murmur, Gallops, Rubs Gastrointestinal/Abdominal: Normal Bowel Sounds, Soft. No Guarding, Rebound, Tenderness Musculoskeletal: No CVA Tenderness Extremity: Normal Capillary Refill Integumentary: Normal Color, Dry, Warm Neurologic: Fully Oriented, Alert, Normal Mood/Affect, Normal Response, Heart Score/ECG Review #1 ECG reviewed & interpreted by me at: 19:42 General ECG Interpretation: Sinus Rhythm, Normal Rate, Normal Intervals, No acute ischemic changes Compared to previous ECG there are: No significant change 01/05/19 19:42 HR 83 QRS 92 QTc 441 ED Treatment Course - LABORATORY CBC & Chemistry Diagram: 01/05/19 20:10 01/05/19 20:10 Medical Decision Making - Medical Decision Making 01/05/19 19:43 The patient is a 33 year old female with a history of hypothyroidism who presents for evaluation of chest pain. Differential includes but is not limited to: ACS, Musculoskeletal, Infectious, Metabolic Derangement. Given the patient's history and physical exam, we will obtain a cbc, cmp, troponin, ekg, chest plain film. The patient is low risk for PE via PERC criteria. We will treat with iv tylenol and continue to monitor and reassess while here in the ED. 01/05/19 21:50 CBC, cmp, troponin are unremarkable. Chest plain film is unremarkable. The patient was reassessed and reports improvement in their symptoms. We are comfortable discharging the patient home in stable condition. Patient and family made aware of impression and plan, return precautions discussed including but not limited to worsening pain or symptoms, fevers, or signs of infection, chest pain, respiratory distress, inability to tolerate oral intake, dehydration, syncope, or neurologic changes. The patient is to follow up with PMD as recommended within 1 week, follow up information provided and the patient will call for an appointment. The patient is to take medications as instructed for duration of time and continue with supportive care, avoid triggers and precipitants. Patient is safe for outpatient follow-up. *DC/Admit/Observation/Transfer Diagnosis at time of Disposition: Chest tightness - Discharge Dispostion Disposition: HOME Condition at time of disposition: Stable - Referrals Referrals: Nettie Leal MD [Primary Care Provider] - Quentin Hudson MD [Staff Physician] - - Patient Instructions Printed Discharge Instructions: DI for Atypical Chest Pain Additional Instructions: 1) Please follow-up with your primary care doctor in the next 2-3 days. Please call tomorrow to schedule a follow up appointment. If you cannot follow up with your doctor within 1 week please return to the Emergency Department for any urgent issues. 2) Your laboratory / imaging results were normal here in the ER. 3) If you have any worsening of symptoms or any other concerns please return to the ER immediately. Return if worsening symptoms including fevers, headache, vomiting, visual or hearing disturbances, abdominal pain, chest pain, shortness of breath, syncope, dehydration, inability to take things by mouth/vomiting, altered mental status, or worsening concerning symptoms. 4) Please continue taking your home medications as directed. Side effects may include upset stomach, abdominal pain, vomiting, or diarrhea. - Post Discharge Activity
[2019-01-05] MEDS ORDERED: ACETAMINOPHEN 1000 MG/100 ML VIAL (NON FORMULARY) IVPB ONE (18:56)
[2019-01-05] MEDS ORDERED: ACETAMINOPHEN INJECTION 100 ML IVPB ONE (19:00)
[2019-01-05 20:35] LABS: BASO % 0.3 % (0-2.0); EOS % 1.1 % (0-4.5); HEMATOCRIT 34.9 % (32.4-45.2); HEMOGLOBIN 11.2 GM/dL (10.7-15.3); LYMPH % 27.3 % (8-40); MCH 26.6 pg (25.7-33.7); MCHC 32.2 g/dl (32.0-36.0); MEAN CELL VOLUME 82.6 fl (80-96); MEAN PLT VOLUME 9.3 fl (7.5-11.1); MONO % 6.2 % (3.8-10.2); NEUT % 65.1 % (42.8-82.8); PLATELET COUNT 175 K/MM3 (134-434); RBC 4.22 M/mm3 (3.60-5.2); RDW 14.2 % (11.6-15.6); WHITE BLOOD COUNT 8.9 K/mm3 (4.0-10.0)
[2019-01-05 21:10] LABS: ALBUMIN 3.4 g/dl (3.4-5.0); ALK PHOS 61 U/L (45-117); ANION GAP 7 MMOL/L (8-16); BILIRUBIN,TOTAL 0.2 mg/dL (0.2-1); BLOOD UREA NITROGEN 12 mg/dL (7-18); CALCIUM 8.5 mg/dL (8.5-10.1); CHLORIDE 106 mmol/L (98-107); CO2 26 mmol/L (21-32); CREATININE 0.8 mg/dL (0.55-1.3); GLUCOSE,RANDOM 99 mg/dL (74-106); POTASSIUM 3.8 mmol/L (3.5-5.1); SGOT/AST 12 U/L (15-37); SGPT/ALT 14 U/L (13-61); SODIUM 139 mmol/L (136-145)
--- NOTE | 2019-01-05 21:50 | PDOC ---
Documentation entered by Antonella Cortes SCRIBE, acting as scribe for Heather Marquez MD. Heather Marquez MD: This documentation has been prepared by the Sebastian milligan Sammi, SCRIBE, under my direction and personally reviewed by me in its entirety. I confirm that the documentation accurately reflects all work, treatment, procedures, and medical decision making performed by me. Attending Attestation - Resident Resident Name: Yeison Wilson - HPI HPI: 01/05/19 19:45 The patient is a 33 year old male, with a significant PMH of hypothyroidism, who presents to the emergency department for evaluation of left sided chest pain and SOB onset earlier today. Patient was evaluated in the ED this morning for a tooth infection and was sent home on amoxicillin. She notes taking percocet today as well. Denies fever, chills, nausea, vomit, diarrhea and constipation. Denies dysuria, frequency, urgency and hematuria. Allergies: naproxen, notriptyline PCP: Elvis - Physicial Exam PE: 01/05/19 21:45 wnwd 33 female has reproducible anterior chest pain head ncat eyes chanell eomi neck supple,no bruits lungs cta b/l cvs [id number] abd nontender skin warm and dry limbs no edema neuro axox3,ambulatory,no neuro deficits psych appropriate - Medical Decision Making 01/05/19 21:48 ekg wnl labs reviewed, trop negative negative cxr napd imp atypical chest pain d/c home
[2019-01-05 22:01] VITALS: BP 123/85; PULSE 80
--- NOTE | 2019-01-06 10:02 | EKG ---
Test Reason : Blood Pressure : / mmHG Vent. Rate : 083 BPM Atrial Rate : 083 BPM P-R Int : 148 ms QRS Dur : 092 ms QT Int : 376 ms P-R-T Axes : 032 -06 -02 degrees QTc Int : 441 ms NORMAL SINUS RHYTHM MINIMAL VOLTAGE CRITERIA FOR LVH, MAY BE NORMAL VARIANT T WAVE ABNORMALITY, CONSIDER ANTERIOR ISCHEMIA ABNORMAL ECG WHEN COMPARED WITH ECG OF 22-MAY-2017 01:30, PREVIOUS ECG HAS UNDETERMINED RHYTHM, NEEDS REVIEW Confirmed by MD NATE, KENDALL ([id number]) on 01/06/2019 10:01:44 AM Referred By: Confirmed By:KENDALL SULLIVAN MD
== END 2019-01-05 22:01 | disposition home or self-care (01) ==
LOC: JER 17:15
PROC: 3E033NZ Introduction of Analgesics, Hypnotics, Sedatives into Peripheral Vein, Percutaneous Approach (ICD-10-PCS; principal; 2019-01-05)
DX: R07.89 Other chest pain (principal); E03.9 Hypothyroidism, unspecified
CPT/HCPCS: 36415; 71045-TC-FY; 80053; 82550; 84484; 84703; 85025; 93005; 93010; 96374; 99283-25; J0131

== ENCOUNTER 2019-04-17 20:35 | Emergency (ER) | payer OTHER ==
[2019-04-17 20:40] VITALS: BP 112/70; PULSE 89; TEMP 98.1; BMI 33.3
[2019-04-17] MEDS ORDERED: DIPHTH,PERTUSS(ACELL),TET 0.5 ML DISP.SYRIN IM ONE ×2 (21:14→21:17)
--- NOTE | 2019-04-17 21:14 | PDOC ---
History of Present Illness - General Chief Complaint: Injury Stated Complaint: R/ANKLE/INJURY Time Seen by Provider: 04/17/19 20:51 History Source: Patient Exam Limitations: No Limitations - History of Present Illness Initial Comments: 04/17/19 21:21 HISTORY OF PRESENT ILLNESS: This is a 33-year-old woman denies medical history presents emergency department for evaluation of right ankle pain status post inversion of her right foot occurring approximately one hour prior to arrival. Patient has been nonambulatory since the initial injury. Patient rates her pain 8/10 and describes as a throbbing sensation. Patient reports she struck her ankle on furniture nearby where she fell. No recent travel or sick contacts. PAST MEDICAL HISTORY: Denies past medical history SURGICAL HISTORY: Denies ALLERGIES: naproxen, nortriptyline REVIEW OF SYSTEMS General/Constitutional: Denies fever or chills. Denies weakness, weight change. HEENT: Denies change in vision. Denies ear pain or discharge. Denies sore throat. Cardiovascular: Denies chest pain or shortness of breath. Respiratory: Denies cough, wheezing, or hemoptysis. Gastrointestinal: Denies nausea, vomiting, diarrhea or constipation. Denies rectal bleeding. Genitourinary: Denies dysuria, frequency, or change in urination. Musculoskeletal: see HPI Skin and breasts: Denies rash or easy bruising. Neurologic: Denies headache, vertigo, loss of consciousness, or loss of sensation. Psychiatric: Denies depression or anxiety. Endocrine: Denies increased thirst. Denies abnormal weight change. Hematologic/Lymphatic: Denies anemia, easy bleeding, or history of blood clots. Allergic/Immunologic: Denies hives or skin allergy. Denies latex allergy. PHYSICAL EXAM General Appearance: Well-appearing, appropriately dressed. No apparent distress , no intoxication. Vascular Pulses: Dorsalis-Pedis (R): 2+, Dorsalis-Pedis (L): 2+ Musculoskeletal/Extremities: Normal inspection. FROM of all extremities, normal capillary refill. Pelvis Stable. No CVA tenderness. No tenderness to extremities, pedal edema, swelling, erythema or deformity. Integumentary: Abrasion present to medial malleolus of right ankle. Neurologic: client evaluator II-XII intact. Fully oriented, alert. Appropriate mood/affect. Motor strength 5/5. No appreciable EOM palsy, facial droop or sensory deficit. Past History - Past Medical History Allergies/Adverse Reactions: Allergies Allergy/AdvReac Type Severity Reaction Status Date / Time naproxen Allergy Severe Hives Verified 04/17/19 20:38 nortriptyline Allergy Severe Hives Verified 04/17/19 20:38 nortriptyline HCl Allergy Severe Hives Verified 04/17/19 20:38 [From Pamelor] Home Medications: Ambulatory Orders Levothyroxine [Synthroid -] 88 mcg PO DAILY 08/20/17 Anemia: No Asthma: Yes Cancer: No Cardiac Disorders: Yes CVA: No COPD: No CHF: No Dementia: No Diabetes: No GI Disorders: No Disorders: No HTN: No Hypercholesterolemia: No Liver Disease: No Seizures: No (new episode of seizure 05/21) Thyroid Disease: Yes (HYPOTHYROID) - Surgical History Abdominal Surgery: No Appendectomy: No Cardiac Surgery: No Cholecystectomy: No Lung Surgery: No Neurologic Surgery: No - Immunization History Immunization Up to Date: Yes - Suicide/Smoking/Psychosocial Hx Smoking History: Never smoked Have you smoked in the past 12 months: No Hx Alcohol Use: No Drug/Substance Use Hx: No Substance Use Type: None *Physical Exam - Vital Signs Last Vital Signs Temp Pulse Resp BP Pulse Ox 98.1 F 89 18 112/70 100 04/17/19 20:38 04/17/19 20:38 04/17/19 20:38 04/17/19 20:38 04/17/19 20:38 ED Treatment Course - RADIOLOGY Radiology Studies Ordered: Category Date Time Status ANKLE & FOOT-RIGHT* [RAD] Stat Radiology 04/17/19 20:51 Taken Medical Decision Making - Medical Decision Making 04/17/19 21:19 A/P: 33-year-old woman for evaluation of right ankle pain status post inversion of the right foot No bony tenderness, deformity, crepitus or step-off present to bones of the lower leg, ankle and foot Full active range of motion noted Abrasion present to the medial malleolus of the right ankle Boostrix X-rays as read by me: No acute fractures or dislocations are present. Christopher wrap Aircast Discharge home with orthopedic follow-up I discussed the physical exam findings, ancillary test results and final diagnoses with the patient. I answered all of the patient's questions. The patient was satisfied with the care received and felt comfortable with the discharge plan and treatment plan. The patient will call their primary care physician within 24 hours to arrange follow-up and will return to the Emergency Department with any new, persistent or worsening symptoms. Portions of this note have been documented using voice recognition software. As a result, errors may occur in the clinical nutritionist process. Effort has been made to correct all grammatical and clinical nutritionist error, but some may have been missed. *DC/Admit/Observation/Transfer Diagnosis at time of Disposition: Acute right ankle pain - Discharge Dispostion Disposition: HOME Condition at time of disposition: Stable Decision to Admit order: No - Referrals Referrals: Nettie Leal MD [Primary Care Provider] - Alexsander Jimenez DO [Staff Physician] - - Patient Instructions Additional Instructions: Take Tylenol as needed for pain. Follow manufacturers instructions for appropriate dosage. Try not to walk or bear weight on your right ankle as much as possible for the next 3 days. Apply ice for 20 minutes and removed for at least 20 minutes before reapplying the ice. Keep Christopher wrap on your ankle as much as possible to help decrease some of the swelling control pain. Whenever possible keep your foot elevated to decrease swelling to your ankle. You've been given the number for an orthopedist. If symptoms do not resolve within the next 7 days call the orthopedist for further evaluation. Return to emergency department for discoloration of the foot, numbness or tingling to the foot, worsening pain, or any other concerns. Thank you very much for choosing us to provide your emergent healthcare needs. - Post Discharge Activity
== END 2019-04-17 21:32 | disposition home or self-care (01) ==
LOC: JERFT 20:35
PROC: 3E0234Z Introduction of Serum, Toxoid and Vaccine into Muscle, Percutaneous Approach (ICD-10-PCS; principal; 2019-04-17)
DX: S99.811A Other specified injuries of right ankle, initial encounter (principal); S90.511A Abrasion, right ankle, initial encounter; W01.190A Fall on same level from slipping, tripping and stumbling with subsequent striking against furniture, initial encounter; Y93.89 Activity, other specified; Y92.038 Other place in apartment as the place of occurrence of the external cause; Y99.8 Other external cause status
CPT/HCPCS: 73610-TC-RT-FY; 73630-TC-RT-FY; 90471; 90715; 99281-25

== ENCOUNTER 2020-08-31 08:34 | Emergency (ER) | payer OTHER ==
[2020-08-31 08:44] VITALS: BP 105/74; PULSE 78; TEMP 97.9; BMI 30.9
[2020-08-31] MEDS ORDERED: SODIUM CHLORIDE 1,000 ML IV STA (08:56)
[2020-08-31] MEDS ORDERED: ONDANSETRON 4 MG/2 ML VIAL IVPUSH ONE (08:56)
[2020-08-31] MEDS ORDERED: ONDANSETRON 4 MG/2 ML VIAL ONE (09:22)
[2020-08-31] MEDS ORDERED: ACETAMINOPHEN 1000 MG/100 ML VIAL (NON FORMULARY) IVPB ONE (09:32)
[2020-08-31] MEDS ORDERED: PANTOPRAZOLE SODIUM 40 MG VIAL IVPUSH ONE (09:32)
[2020-08-31] MEDS ORDERED: PANTOPRAZOLE SODIUM 40 MG VIAL ONE (09:39)
[2020-08-31] MEDS ORDERED: ACETAMINOPHEN INJECTION 100 ML IVPB ONE (09:39)
[2020-08-31 10:04] LABS: BASO % 6.8 % (0-2.0); EOS % 1.5 % (0-4.5); HEMATOCRIT 38.1 % (32.4-45.2); HEMOGLOBIN 12.5 GM/dL (10.7-15.3); LYMPH % 15.5 % (8-40); MCH 27.3 pg (25.7-33.7); MCHC 32.8 g/dl (32.0-36.0); MEAN CELL VOLUME 83.3 fl (80-96); MEAN PLT VOLUME 10.7 fl (7.5-11.1); NEUT % 72.2 % (42.8-82.8); PLATELET COUNT 212 K/MM3 (134-434); RBC 4.57 M/mm3 (3.60-5.2); RDW 13.9 % (11.6-15.6); WHITE BLOOD COUNT 8.9 K/mm3 (4.0-10.0)
[2020-08-31 10:05] LABS: HCG,QUALITATIVE URINE Negative
[2020-08-31 10:06] LABS: EPI CELLS >36 /uL (0-25.1); HYALINE CASTS 8 /uL (0-3.1); URINE APPEARANCE TURBID; URINE BACTERIA >9,000 /uL (0-1359); URINE BILIRUBIN NEGATIVE (NEGATIVE); URINE COLOR YELLOW; URINE GLUCOSE (UA) NEGATIVE (NEGATIVE); URINE KETONE NEGATIVE (NEGATIVE); URINE LEUK ESTERASE 1+ (NEGATIVE); URINE NITRITE NEGATIVE (NEGATIVE); URINE PROTEIN NEGATIVE (NEGATIVE); URINE RBC 17 /uL (0-23.9); URINE WBC 224 /uL (0-25.8)
[2020-08-31 10:13] LABS: POTASSIUM 5.3 mmol/L (3.5-5.1)
[2020-08-31 10:16] LABS: ALBUMIN 3.4 g/dl (3.4-5.0); BLOOD UREA NITROGEN 9.3 mg/dL (7-18); MAGNESIUM 2.2 mg/dL (1.8-2.4)
[2020-08-31 10:19] LABS: CREATININE 0.8 mg/dL (0.55-1.3)
[2020-08-31 10:20] LABS: BILIRUBIN,TOTAL 0.4 mg/dL (0.2-1); TOT PROT 7.5 g/dl (6.4-8.2)
[2020-08-31 10:30] LABS: ANISOCYTOSIS 0; MACROCYTOSIS 0; PLATELET ESTIMATE NORMAL
== END 2020-08-31 11:22 | disposition home or self-care (01) ==
LOC: JER 08:34
PROC: 3E033NZ Introduction of Analgesics, Hypnotics, Sedatives into Peripheral Vein, Percutaneous Approach (ICD-10-PCS; principal; 2020-08-31)
PROC: 3E0337Z Introduction of Electrolytic and Water Balance Substance into Peripheral Vein, Percutaneous Approach (ICD-10-PCS; 2020-08-31)
PROC: 3E033GC Introduction of Other Therapeutic Substance into Peripheral Vein, Percutaneous Approach (ICD-10-PCS; 2020-08-31)
DX: N39.0 Urinary tract infection, site not specified (principal)
CPT/HCPCS: 36415; 80053; 81003; 83605; 83690; 83735; 84703; 85025; 87086; 99285-25; J0131

== ENCOUNTER 2021-05-30 09:03 | Emergency (ER) | payer OTHER ==
[2021-05-30 09:22] VITALS: BP 113/75; PULSE 78; TEMP 98; BMI 34.5
[2021-05-30] MEDS ORDERED: METHOCARBAMOL 500 MG TABLET PO ONE (09:28)
[2021-05-30] MEDS ORDERED: KETOROLAC TROMETHAMINE 30 MG/1 ML VIAL IM ONE (09:28)
[2021-05-30] MEDS ORDERED: KETOROLAC TROMETHAMINE 30 MG/1 ML VIAL ONE (09:31)
[2021-05-30] MEDS ORDERED: METHOCARBAMOL 500 MG TABLET ONE (09:31)
== END 2021-05-30 10:04 | disposition home or self-care (01) ==
LOC: JER 09:03
PROC: 3E0233Z Introduction of Anti-inflammatory into Muscle, Percutaneous Approach (ICD-10-PCS; principal; 2021-05-30)
DX: R07.82 Intercostal pain (principal); W22.8XXA Striking against or struck by other objects, initial encounter; Y93.F2 Activity, caregiving, lifting; Y92.129 Unspecified place in nursing home as the place of occurrence of the external cause
CPT/HCPCS: 71111-TC-FY; 99284-25

== ENCOUNTER 2021-08-05 09:05 | Emergency (ER) | payer OTHER ==
[2021-08-05] MEDS ORDERED: ONDANSETRON *ODT* 4 MG TABLET SL ONE (11:01)
[2021-08-05 11:22] VITALS: BP 101/65; PULSE 86; TEMP 98.2; BMI 24.7
[2021-08-05] MEDS ORDERED: ONDANSETRON *ODT* 4 MG TABLET ONE (11:41)
[2021-08-06 07:06] LABS: SARS-CoV-2 NAA Detected (Not Detected)
== END 2021-08-05 17:54 | disposition home or self-care (01) ==
LOC: JER 09:05
DX: U07.1 COVID-19 (principal)
CPT/HCPCS: 87804; 87807; 99283-25; C9803; Q0162; U0003; U0005

== ENCOUNTER 2022-04-11 23:03 | Emergency (ER) | payer OTHER ==
[2022-04-11 23:07] VITALS: BP 117/88; PULSE 85; RESP 22; TEMP 98.1; BMI 32.8
[2022-04-11] MEDS ORDERED: FAMOTIDINE 20 MG/50 ML IVPB 20 MG/50 ML MG IVPB ONE ×2 (23:14→23:24)
[2022-04-11] MEDS ORDERED: methylPREDNISolone NA SUCC 125 MG/2 ML VIAL IVPUSH ONE (23:14)
[2022-04-11] MEDS ORDERED: methylPREDNISolone NA SUCC 125 MG/2 ML VIAL ONE (23:24)
== END 2022-04-12 01:29 | disposition home or self-care (01) ==
LOC: JER 23:03
PROC: 3E033NZ Introduction of Analgesics, Hypnotics, Sedatives into Peripheral Vein, Percutaneous Approach (ICD-10-PCS; principal; 2022-04-11)
PROC: 3E033GC Introduction of Other Therapeutic Substance into Peripheral Vein, Percutaneous Approach (ICD-10-PCS; 2022-04-11)
PROC: 3E033GC Introduction of Other Therapeutic Substance into Peripheral Vein, Percutaneous Approach (ICD-10-PCS; 2022-04-11)
DX: T78.40XA Allergy, unspecified, initial encounter (principal)
CPT/HCPCS: 99284-25

== ENCOUNTER 2023-11-14 05:43 | Emergency (ER) | payer OTHER ==
[2023-11-14 05:52] VITALS: BP 105/70; PULSE 68; RESP 20; TEMP 97.8; BMI 30.2
[2023-11-14] MEDS ORDERED: METHOCARBAMOL 500 MG TABLET ONE (07:34)
[2023-11-14] MEDS: METHOCARBAMOL 500 MG TABLET PO ONE (07:39)
== END 2023-11-14 09:25 | disposition home or self-care (01) ==
LOC: JER 05:43
DX: S46.001A Unspecified injury of muscle(s) and tendon(s) of the rotator cuff of right shoulder, initial encounter (principal); X50.0XXA Overexertion from strenuous movement or load, initial encounter
CPT/HCPCS: 73030-TC-RT-FY; 99283-25

== ENCOUNTER 2024-07-08 23:53 | Emergency (ER) | payer OTHER ==
[2024-07-08 23:58] VITALS: BP 105/71; PULSE 82; RESP 20; TEMP 97.3; BMI 31.9
[2024-07-09] MEDS ORDERED: ONDANSETRON *ODT* 4 MG TABLET ONE (00:58)
[2024-07-09] MEDS: ONDANSETRON *ODT* 4 MG TABLET SL ONE (01:03)
[2024-07-09 02:53] LABS: BASO % 0.3 % (0-2.0); EOS % 1.5 % (0-4.5); HEMATOCRIT 33.4 % (32.4-45.2); HEMOGLOBIN 10.7 GM/dL (10.7-15.3); LYMPH % 34.2 % (8-40); MCH 25.7 pg (25.7-33.7); MCHC 31.9 g/dl (32.0-36.0); MEAN CELL VOLUME 80.6 fl (80-96); MEAN PLT VOLUME 7.8 fl (7.5-11.1); MONO % 8.5 % (3.8-10.2); NEUT % 55.5 % (42.8-82.8); PLATELET COUNT 219 10^3/uL (134-434); RBC 4.14 M/mm3 (3.60-5.2); WHITE BLOOD COUNT 5.7 K/mm3 (4.0-10.0)
[2024-07-09 03:12] LABS: POTASSIUM 3.7 mmol/L (3.5-5.1)
[2024-07-09 03:14] LABS: BLOOD UREA NITROGEN 10.8 mg/dL (7-18); CALCIUM 8.8 mg/dL (8.5-10.1)
[2024-07-09 03:15] LABS: ALBUMIN 3.3 g/dl (3.4-5.0)
[2024-07-09 03:17] LABS: CREATININE 0.8 mg/dL (0.55-1.3)
[2024-07-09 03:19] LABS: BILIRUBIN,TOTAL 0.3 mg/dL (0.2-1); TOT PROT 6.6 g/dl (6.4-8.2)
[2024-07-09] MEDS ORDERED: FAMOTIDINE 20 MG/50 ML IVPB 20 MG/50 ML MG IVPB ONE (04:05)
[2024-07-09] MEDS ORDERED: ACETAMINOPHEN INJECTION 100 ML ONE (04:05)
[2024-07-09] MEDS: ACETAMINOPHEN 1000 MG/100 ML BAG IVPB ONE (04:09)
[2024-07-09] MEDS: FAMOTIDINE 20 MG/50 ML IVPB 20 MG/50 ML MG IVPB ONE (04:19)
== END 2024-07-09 05:40 | disposition home or self-care (01) ==
LOC: JER 23:53
PROC: 3E033GC Introduction of Other Therapeutic Substance into Peripheral Vein, Percutaneous Approach (ICD-10-PCS; principal; 2024-07-09)
PROC: 3E033NZ Introduction of Analgesics, Hypnotics, Sedatives into Peripheral Vein, Percutaneous Approach (ICD-10-PCS; 2024-07-09)
DX: R11.2 Nausea with vomiting, unspecified (principal); R19.7 Diarrhea, unspecified; R10.13 Epigastric pain
CPT/HCPCS: 36415; 74177-TC; 80053; 83690; 83735; 84703; 85025; 99285-25; J0131; Q0162